=== PATIENT | male | born 1935 | race Caucasian/White ===

== ENCOUNTER 2023-03-08 16:09 | Emergency (ER) | payer OTHER ==
--- OUTSIDE RECORDS SUMMARY | 2023-03-08 16:11 | XMS REPORT | Continuity of Care Document ---
:1935 Author Organization [facility] t Address [address] [place] [id number] Care Team Providers Name Role Phone [email or web address]_Kohlleppel_ Attending Clinician Unavailable [email or web address]_Kohlleppel_ Admitting Clinician Unavailable Problems This patient has no known problems. Allergies, Adverse Reactions, Alerts This patient has no known allergies or adverse reactions. Medications This patient has no known medications. Procedures This patient has no known procedures. Encounters Start End Encounter Admission Attending Care Care Encounter Source Date/Time Date/Time Type Type Clinicians Facility Department ID 2022-07-31 2022-07-31 Outpatient [email or web address] PRIV PRIV [id number] [facility] 00:00:00 00:00:00 hlleppel_ [id number] [facility] Results This patient has no known results.
[2023-03-08 17:01] LABS: Absolute Lymphocytes (CBC) 2.1 K/uL (0.7-4.9); Hematocrit 40.9 % (39.6-49.0); Lymphocytes % 21.6 % (15.3-44.8); MCV 87.4 fL (80-100); MPV 7.5 fL (7.6-11.3); Platelets 277 thou/uL (152-406); RBC Red Blood Cell Count 4.68 M/uL (4.33-5.43)
[2023-03-08 17:16] LABS: Albumin 3.7 g/dL (3.4-5.0); Bilirubin Total 0.4 mg/dL (0.2-1.0); Magnesium 2.2 mg/dL (1.6-2.4); Protein, Total 7.2 g/dL (6.4-8.2)
[2023-03-08] MEDS ORDERED: NA CHLORIDE 0.9% 500 ML ONE (17:17)
--- NOTE | 2023-03-08 18:28 | RAD REPORT ---
EXAM DESCRIPTION: CTAbdomen Pelvis Wo Contrast - 03/08/2023 6:11 pm CLINICAL HISTORY: diarrhea COMPARISON: No comparisons TECHNIQUE: CT of the abdomen and pelvis was performed. All CT scans are performed using dose optimization technique as appropriate and may include automated exposure control or mA/KV adjustment according to patient size. FINDINGS: Lower chest: Circumferential thickened distal esophagus which may reflect esophagitis . En doscopy could better evaluate. Liver: No acute abnormality or suspicious lesions. Biliary: No biliary ductal dilatation. Cholelithiasis . Stomach: No significant focal abnormality. Duodenum: No significant focal abnormality. Pancreas: No significant abnormality. Spleen: No significant abnormality. Adrenal: No suspicious lesions. Kidney/ureter: No hydronephrosis. 4 mm stone in the right kidney . Too small to characterize and/or b enign appearing renal lesions are noted. Retroperitoneum: No retroperitoneal adenopathy. Vascular: No aneurysm. Atherosclerosis . Bowel: No significant focal abnormality. No appendicitis . Peritoneum: No ascites or free air. Bladder: Grossly unremarkable. Reproductive: No adnexal masses. Bones: No acute fracture. Other: n/a IMPRESSION: No acute intra-abdominal or pelvic finding.
--- NOTE | 2023-03-08 18:45 | ER ---
Nurse's Notes [facility] Name: Reji Jimenez Sr Age: 87 yrs Sex: Male : 1935 Arrival Date: 03/08/2023 Time: 16:09 Bed 2 Private MD: Diagnosis: Diarrhea, unspecified Presentation: 03/08 16:18 Chief complaint: EMS states: toned out for weakness and diarrhea, reports he has iw chronic diarrhea but i has gotten worse over past two days ad he's been more weak than usual. Coronavirus screen: Client presents with at least one sign or symptom that may indicate coronavirus-19. Ebola Screen: Patient negative for fever greater than or equal to 101.5 degrees Fahrenheit, and additional compatible Ebola Virus Disease symptoms Patient denies exposure to infectious person. Patient denies travel to an Ebola-affected area in the 21 days before illness onset. No symptoms or risks identified at this time. 16:18 Method Of Arrival: EMS: [facility] iw 16:18 Acuity: [facility] 3 iw 16:19 Initial Sepsis Screen: Does the patient meet any 2 criteria? No. Patient's initial iw sepsis screen is negative. Does the patient have a suspected source of infection? No. Patient's initial sepsis screen is negative. Risk Assessment: Do you want to hurt yourself or someone else? Patient reports no desire to harm self or others. Onset of symptoms was March 06, 2023. Screenin:38 [facility] ED Fall Risk Assessment (Adult) Score/Fall Risk Level 0 - 2 = Low Risk. Abuse iw screen: Denies threats or abuse. Denies injuries from another. Nutritional screening: No deficits noted. Tuberculosis screening: No symptoms or risk factors identified. Assessment: 16:38 General: Appears in no apparent distress. Behavior is calm, cooperative. Pain: Denies iw pain. Neuro: Level of Consciousness is awake, alert, obeys commands, Oriented to person, place, time, situation, Lens Examiner are equal bilaterally Moves all extremities. Respiratory: Respiratory effort is even, unlabored, Respiratory pattern is regular, symmetrical. GI: Reports diarrhea. 17:57 Reassessment: Patient appears in no apparent distress at this time. Patient and/or iw family updated on plan of care and expected duration. Pain level reassessed. Patient is alert, oriented x 3, equal unlabored respirations, skin warm/dry/pink. 19:05 Reassessment: Patient is alert, oriented x 3, equal unlabored respirations, skin aa5 warm/dry/pink. 19:05 Reassessment: Pt tolerated cup of water well, no nausea, no vomiting noted or reported. aa5 . Vital Signs: 16:19 BP 130 / 81; Pulse 72; Resp 18 S; Temp 98(O); Pulse Ox 96% on R/A; aa5 19:00 BP 137 / 98; Pulse 68; Resp 18 S; Temp 97.8(TE); Pulse Ox 98% on R/A; aa5 ED Course: 16:18 Patient arrived in ED. iw 16:18 Faraz Chawla PA is PHCP. cp 16:18 Alberto Mancera MD is Attending Physician. cp 16:19 Triage completed. iw 16:19 Arm band placed on. iw 16:27 Quynh Eduardo RN is Primary Nurse. iw 16:36 Initial lab(s) drawn, by az, sent to lab. Inserted saline lock: 20 gauge in left iw antecubital area, using aseptic technique. Blood collected. 18:11 CT Abd/Pelvis - Without Contrast In Process Unspecified. EDMS 19:04 Patient has correct armband on for positive identification. Provided Education on: . iw 19:05 No provider procedures requiring assistance completed. IV discontinued, intact, aa5 bleeding controlled, No redness/swelling at site. Pressure dressing applied. Administered Medications: 17:09 Drug: NS 0.9% IV 500 ml IV at 100 ml/hr continuous Route: IV; Rate: 100 ml/hr; Site: aa5 left antecubital; 19:00 Follow up: IV Status: Order to discontinue infusion iw Medication: 17:57 VIS not applicable for this client. iw Outcome: 18:44 Discharge ordered by . cp 19:05 Discharged to home via wheelchair, with significant other, aa5 19:05 Condition: stable 19:05 Discharge instructions given to patient, significant other, Instructed on discharge instructions, follow up and referral plans. Demonstrated understanding of instructions, follow-up care, 19:14 Patient left the ED. aa5 Signatures: Dispatcher [employer] EDNJ Quynh Eduardo RN RN iw Chinyere Giordano RN RN aa5 Page, Faraz, PA PA cp
--- NOTE | 2023-03-08 18:45 | EDPHYS ---
Physician Documentation [facility] Name: Reji Jimenez Sr Age: 87 yrs Sex: Male : 1935 Arrival Date: 03/08/2023 Time: 16:09 Bed 2 Private MD: ED Physician Alberto Mancera HPI: 03/08 16:30 This 87 yrs old Unknown Male presents to ER via EMS with complaints of General cp Weakness, Diarrhea. 16:30 The patient presents to the emergency department with diarrhea, 1 times today, cp abdominal pain. Onset: The symptoms/episode began/occurred 2 day(s) ago. Possible causes: bad food exposure. Associated signs and symptoms: Pertinent negatives: constipation, dysuria, fever, GI bleeding, vomiting. Severity of symptoms: in the emergency department the symptoms are unchanged despite home interventions. ROS: 16:35 Eyes: Negative for injury, pain, redness, and discharge, cp 16:35 Constitutional: Negative for fever, poor PO intake, 16:35 ENT: Negative for drainage from ear(s), ear pain, sore throat, difficulty swallowing, difficulty handling secretions, 16:35 Cardiovascular: Negative for chest pain, edema, 16:35 Respiratory: Negative for cough, shortness of breath, wheezing, 16:35 Abdomen/GI: Positive for abdominal pain, diarrhea, Negative for vomiting, constipation, black/tarry stool, rectal bleeding, 16:35 : Negative for urinary symptoms, 16:35 Neuro: Positive for weakness, Negative for altered mental status, dizziness, headache, 16:35 All other systems are negative, Exam: 16:40 Constitutional: The patient appears in no acute distress, alert, awake, cp non-diaphoretic, non-toxic, well developed, well nourished, 16:40 Head/Face: Normocephalic, atraumatic. cp 16:40 Eyes: Periorbital structures: appear normal, Conjunctiva: normal, no exudate, no injection, Sclera: no appreciated abnormality, Lids and lashes: appear normal, bilaterally, 16:40 ENT: External ear(s): are unremarkable, Nose: is normal, Mouth: Lips: moist, Oral mucosa: pink and intact, moist, Posterior pharynx: Airway: no evidence of obstruction, patent, 16:40 Chest/axilla: Inspection: normal, 16:40 Cardiovascular: Rate: normal, Rhythm: regular, Edema: is not appreciated, JVD: is not appreciated, 16:40 Respiratory: the patient does not display signs of respiratory distress, Respirations: normal, no use of accessory muscles, no retractions, labored breathing, is not present, Breath sounds: are clear throughout, no decreased breath sounds, no stridor, no wheezing, 16:40 Abdomen/GI: Inspection: abdomen appears normal, Bowel sounds: active, all quadrants, Palpation: soft, in all quadrants, mild abdominal tenderness, in all quadrants, rebound tenderness, is not appreciated, involuntary guarding, is not appreciated, 16:40 Back: pain, is absent, ROM is normal, 16:40 Skin: cellulitis, is not appreciated, no rash present. 16:40 Neuro: Orientation: to person, place \T\ time. Mentation: is normal, Motor: moves all fours, strength is normal, Sensation: is normal, Vital Signs: 16:19 BP 130 / 81; Pulse 72; Resp 18 S; Temp 98(O); Pulse Ox 96% on R/A; aa5 19:00 BP 137 / 98; Pulse 68; Resp 18 S; Temp 97.8(TE); Pulse Ox 98% on R/A; aa5 MDM: 16:25 Patient medically screened. cp 17:00 Differential diagnosis: gastritis, cholecystitis, pancreatitis, diverticulitis, viral cp gastroenteritis, gastroenteritis. 18:43 Data reviewed: vital signs, nurses notes, lab test result(s), radiologic studies, CT cp scan. ED course: VSS. Patient reports symptoms improved and requesting discharge to home. 03/08 16:21 Order name: CBC with Diff; Complete Time: 17:17 03/08 17:17 Interpretation: Normal except: MPV 7.5. 03/08 16:21 Order name: CMP; Complete Time: 17:17 03/08 17:18 Interpretation: Normal except: GLUC 171; BUN 36; CRE 1.49; GFR 45. 03/08 16:21 Order name: Lipase; Complete Time: 17:17 03/08 16:21 Order name: Influenza Screen (a \T\ B); Complete Time: 17:48 03/08 17:48 Interpretation: Reviewed. 03/08 16:21 Order name: Magnesium; Complete Time: 17:17 03/08 16:36 Order name: SARS-COV-2 RT PCR; Complete Time: 17:48 iw 03/08 17:48 Interpretation: Reviewed. cp 03/08 17:18 Order name: CT Abd/Pelvis - Without Contrast; Complete Time: 18:38 cp 03/08 16:21 Order name: IV Saline Lock; Complete Time: 16:48 cp 03/08 16:21 Order name: Labs collected and sent; Complete Time: 16:48 cp 03/08 18:40 Order name: PO challenge; Complete Time: 18:45 cp Administered Medications: 17:09 Drug: NS 0.9% IV 500 ml IV at 100 ml/hr continuous Route: IV; Rate: 100 ml/hr; Site: aa5 left antecubital; 19:00 Follow up: IV Status: Order to discontinue infusion iw Disposition: 21:16 Co-signature as Attending Physician, Alberto Mancera MD I reviewed the patient's care rt provided by the Advanced Practice Provider and agree with the diagnosis and treatment plan. Disposition Summary: 03/08/23 18:44 Discharge Ordered Notes: Location: Home cp Problem: new cp Symptoms: have improved cp Condition: Stable cp Diagnosis - Diarrhea, unspecified cp Followup: cp - With: Private Physician - When: 2 - 3 days - Reason: Recheck today's complaints Discharge Instructions: - Discharge Summary Sheet cp - Food Choices to Help Relieve Diarrhea, Adult cp - Dehydration, Elderly cp - Diarrhea, Adult cp Forms: - Medication Reconciliation Form cp - Thank You Letter cp - Antibiotic Education cp - Prescription Opioid Use cp - Patient Portal Instructions cp - Leadership Thank You Letter cp Signatures: Dispatcher [employer] [facility] Chinyere Giordano RN RN aa5 Faraz Chawla PA PA cp Alberto Mancera MD MD rt Quynh Eduardo RN iw Corrections: (The following items were deleted from the chart) 03/09 03:53 03:51 The patient presents to the emergency department with diarrhea, 1 times today, cp abdominal pain, cp 03:53 03:51 Onset: The symptoms/episode began/occurred 2 day(s) ago, cp cp 03:53 03:51 Possible causes: bad food exposure, cp cp 03:53 03:51 Associated signs and symptoms: Pertinent negatives: constipation, dysuria, fever, cp GI bleeding, vomiting, cp 03:53 03:51 Severity of symptoms: in the emergency department the symptoms are unchanged cp despite home interventions, cp
[2023-03-08 19:28] VITALS: BP 130/81; TEMP 98; O2SAT 96
== END 2023-03-08 19:14 | disposition home or self-care (01) ==
LOC: ER 16:09
DX: R19.7 Diarrhea, unspecified (principal); R53.1 Weakness; Z11.52 Encounter for screening for COVID-19
CPT/HCPCS: 96361; 85025; 36415; 83735; 83690; 80053; 87635; 87804 ×2; 74176; 96360; 99284; J7040

== ENCOUNTER 2023-04-19 10:00 | Inpatient (IN) | payer OTHER ==
--- OUTSIDE RECORDS SUMMARY | 2023-04-19 10:15 | XMS REPORT | Continuity of Care Document ---
Author Name Unknown Address [address] [facility] [address] th[address] Address [address] [place] [address] 1 [address] [place] [address] Care Team Providers Care Train Inspector Name Role Phone [email or web address]_Kohlleppel_ Attending Clinician Unavail able [email or web address]_Kohlleppel_ Admitting Clinician Unavail able Encounters Start Date/Time End Date/Time Encounter Type Admission Type Attending Clinicians Care Facility Care Department Encounter ID Source 2022-07-31 00:00:00 2022-07-31 00:00:00 Outpatient [email or web address]_Ko hlleppel_ PRIV [facility] [id number] [facility]
[2023-04-19] MEDS ORDERED: D50W 25 GM/50 ML SYRINGE IV PRN (11:50)
[2023-04-19] MEDS ORDERED: GLUCAGON 1 MG/VIAL IM PRN (11:50)
[2023-04-19] MEDS ORDERED: D10W 125 ML IV PRN (12:00)
[2023-04-19] MEDS ORDERED: CETIRIZINE HCL 5 MG TABLET PO PRN (12:13)
[2023-04-19] MEDS ORDERED: DOCUSATE NA/SENNA CONC 1 TAB PO PRN (13:31)
[2023-04-19] MEDS ORDERED: NA CHLORIDE 0.9% 1,000 ML IV SCH (14:00)
[2023-04-19] MEDS ORDERED: GABAPENTIN 300 MG CAP PO SCH (14:00)
[2023-04-19] MEDS: GABAPENTIN 100 MG CAP PO SCH ×2 (14:38→20:06)
[2023-04-19] MEDS: INSULIN REGULAR (HUMAN) 100 UNIT/ML SQ SCH ×2 (16:30→20:18)
--- NOTE | 2023-04-19 16:48 | RAD REPORT ---
EXAM DESCRIPTION: RAD - Chest Single View - 04/19/2023 4:39 pm CLINICAL HISTORY: cought Chest pain. COMPARISON: No comparisons FINDINGS: Portable technique limits examination quality. The lungs are grossly clear. The heart is normal in size. No displaced fractures. IMPRESSION: No acute intrathoracic process suspected.
[2023-04-19] MEDS: GLIMEPIRIDE 2 MG TABLET PO SCH (17:44)
[2023-04-19] MEDS: carvediloL 6.25 MG TAB PO SCH (17:44)
[2023-04-19] MEDS: PARoxetine HCL 10 MG TAB PO SCH (20:05)
[2023-04-19] MEDS: APIXABAN 2.5 MG TABLET PO SCH (20:05)
[2023-04-19] MEDS: SACUBITRIL/VALSARTAN 24/26 MG TAB PO SCH (20:05)
[2023-04-19] MEDS: FAMOTIDINE 20 MG TAB PO SCH (20:05)
[2023-04-19] MEDS: MAGNESIUM OXIDE 400 MG TAB PO SCH (20:06)
[2023-04-19] MEDS: GLUCERNA SHAKE 237 ML CAN PO SCH (20:06)
[2023-04-19] MEDS: CIPROFLOXACIN 500 MG PO SCH (20:18)
--- NOTE | 2023-04-19 21:35 | HP ---
Date of Admission: 04/19/2023 Time Of Service: 1:45 p.m. Chief Complaint: "I'm very weak and I can't stand up." History Of Present Illness: Mr. Jimenez is an 87-year-old patient with multiple medical problems inc luding congestive heart failure, diabetes mellitus type 2, coronary artery disease, arthritis, cancer , hypertension, who has been declining over multiple years. He has had multiple falls including fall s where he impacted his head, but has not had any skull fractures or internal bleeding. He was actua lly falling multiple times a day. He tried to ambulate with a Rollator, but it was unable to help hi m. He began home health with physical therapy, but despite that, he was unable to thrive and became essentially bed-bound. The patient did admit that his lower back pain with radiculopathy made it dif ficult for him to stand and bear weight and as a consequence, has been mostly bed bound. He has also been incontinent of urine and stool and has had multiple antibiotics. Furthermore, the patient had edema in the bilateral lower extremities and was put on Lasix 40 mg daily. He has had significant or thostatic type symptoms when he is going from a lying to sitting and standing position resulting in h im getting "dizzy" and being unable to stand due to the feeling of diffuse weakness and inability to mobilize. As a result, he is beginning to have breakdown in his buttocks region and dependent areas and would require significant help for him to be able to stand and ambulate and began to recover his ability to improve his mobilization transfers and offload areas that will prevent decubital ulcers. As a result, he is admitted to the inpatient rehabilitation unit for aggressive physical and occupati onal therapy along with management of his comorbid conditions. Past Medical History: As noted above included also his back surgery after a back injury 4 years ago. He has hypothyroidism and prostate disease. Allergies: NO KNOWN DRUG ALLERGIES. Medications: Tylenol 500 mg every 6 hours as needed, Eliquis 2.5 mg twice daily for DVT prophylaxis, atorvastatin 20 mg at bedtime, Coreg 6.25 mg twice daily. He is on Zyrtec 10 mg daily for his aller gies. He has ciprofloxacin 500 mg twice daily for urinary tract infection and cystic fibrosis. Also on Senokot-S 2 at bedtime, Pepcid 20 mg twice daily, gabapentin 100 mg 3 times daily for diabetes, A maryl 4 mg twice daily, Glucerna 237 mL twice daily, levothyroxine 0.025 mg daily, Atacand patch appl y topically daily to the back as needed, magnesium oxide 400 mg twice daily, melatonin 3 at bedtime. The patient on arrival to the unit had significant orthostatic changes. His standing blood pressure was 188 over around 53, pulse of 102. He was given 500 cc bolus of normal saline and continue the o ther 575 cc an hour. In addition, received Paxil 30 mg at bedtime. He is on the Prevagen daily for cognitive impairment and spironolactone 25 mg daily along with sacubitril/valsartan 1 tablet twice da basia. Family History: Noncontributory. Social History: The patient was living at home, but as noted was not thriving. No alcohol, tobacco, or IV drug use. Review of Systems: As noted, marked dizziness and orthostatic worsening symptoms preventing him from doing any meaningfu l mobilization such as standing and ambulation. Also able to control bowel and bladder loss and some diffuse muscle spasms in the lower extremity, especially when trying to sit up. Denies any vomiting or nausea. On review of systems again, no fevers, chills, nausea, vomiting. Laboratory Studies: His glucose ranged from 150 to 184 on March 28 and today at 737. White bloo d cell count had increased to 18 and the previous one on March 08 was 9.7. Neutrophils were 68 on the and absolute neutrophils elevated at 12.5. He has been treated with antibiotics. His sodiu m on the was 138, potassium 4.2, chloride 107, carbon dioxide 28, his creatinine was elevated at 1.42, consistent with dehydration. Hemoglobin A1c elevated at 7.3, calcium 9.6, AST 11, ALT 30, lillie line phosphatase 119. His vitamin D level 41.1, vitamin B12 level 278. Current Level Of Functioning: Currently, supervision for eating, oral hygiene; dependent for toilet hygiene; dependent for bathing; maximal assistance for upper body dressing and lower body dressing co mpletely independent; donning and doffing shoes, dependent; rolling left to right and right to left s upervision, moderate assistance for [id number] transfers to the toilet. Also dependent for toileti ng and ambulation. He covered just 1 foot, was totally dependent, and attempted one stair is totally dependent. Rehab And Medical Assessment And Plan: Mr. Jimenez is admitted to the inpatient rehabilitation unit with impairment category 06, neurological condition. His impairment group code is 03.9 other neurolo gical condition. 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 Additional comorbidities are arth ritis, coronary artery disease, cardiomyopathy, congestive heart failure, decreased mobility, decreas ed physical functioning, diabetes mellitus, hypertension, hypotension, and orthostatic hypotension, r ecurrent falls, urinary tract infection, urinary and stool incontinence. Plan: 1.He will have physical and occupational therapy along with speech therapy for 3.5 hours, 5 of 7 day s. 2.We will continue with fluids as he has been over diuresed to help with his orthostatic changes. W e will monitor daily weights and calf circumference and look for any pitting edema. He will also hav e a chest x-ray done to rule out any congestion in the chest. Chest x-ray was done earlier today and study revealed lungs are grossly clear, heart of normal size. No displaced fractures. No acute int rathoracic process was identified. In addition, we will continue with hold parameters on his Coreg a nd spironolactone. Continue Paxil for depression. Continue Lipitor for dyslipidemia, Eliquis 2.5 mg twice daily for DVT prophylaxis, Glucerna for malnutrition, Amaryl 4 mg daily for diabetes mellitus, Synthroid for hypothyroidism, melatonin for insomnia, Senokot-S for constipation. Impact Of Comorbidities: Given his significant orthostatic changes, he is at high risk of falling, f all precautions adhered to at all times. He will have a gait belt and the rolling walker. The patie nt may benefit from abdominal binders and JEANNE hose as he mobilizes. Also, there is incontinence of s tool and urine. May attempt bladder training and timed stool in relationship to meals to help him pl an the ability to manage his urine and stool output. He will work hard to be able to return home, bu t if he is unable to thrive, he may require correction. Rehab Specific Plan: 1.Mr. Jimenez will have physical, occupational, and speech therapy for 3.5 hours, 5 of 7 days to imp rove his ability to transfer from bed to chair to toilet to shower. To be able to ambulate at least household distance of 50 feet and go up and down 2 steps. 2.To be able to perform cognitive functioning independently. 3.To be able to assess his weight daily and to determine if he is retaining fluid to adjust diuretic s and to check daily blood pressures. He will also have correction to help with that. Also uri nalysis will be done. Chest x-ray has already ruled out pneumonia and his renal function again sugge sts dehydration. Fluids will be given and those will be managed. 4.Mr. Jimenez has a good understanding of the process of admission to inpatient rehabilitation facil ities and understands the benefit of physical, occupational, and speech therapy. If need be, additio nal service from the Cardiology Service, the Hospitalist Service will be consulted. He will have 24 hours a day correction along with daily physician evaluation, management, and of course physical , occupational, and speech therapy and social services technician management for discharge planning and equipmen t. Barriers To Discharge: Currently, he has significant orthostatic changes and may make it difficult f or him to thrive, but that is likely related to significant hypotension from dehydration and over diu resis. Those are being addressed and he should improve from that. Length of stay about 12 days. Disposition: Home with continued therapy via Home Health. Prognosis: Good. Rehabilitation Goals: 1.To become independent with upper and lower body dressing, transferring, toileting, showering. 2.Independent with ambulation of 250 feet with a rolling walker. 3.Independently propel a wheelchair 250 feet. 4.Independently go up and down 10 steps with bilateral handrails. 5.Independently perform cognitive function, management of all medications, and his daily weights and blood pressure. Blood pressure is followed with appropriate use of diuretics. 6.The above goals were reviewed with Mr. Jimenez and he is in agreement. By signing this document, I acknowledge I personally performed a full physical examination on Mr. Layton arita no later than 24 hours after his admission to the inpatient rehabilitation facility and determin ed that he is able to tolerate the above course of treatment at an intensive level for a reasonable p eriod of time. A detailed individualized plan of care for him will be completed by hospital day 4 based on the preadmission screen, history and phy sical, and therapy evaluations. KEENAN/SHAHEEN Voice ID: [id number]
[2023-04-20] MEDS: LEVOTHYROXINE SOD 0.025 MG TAB PO SCH (05:34)
[2023-04-20] MEDS: INSULIN REGULAR (HUMAN) 100 UNIT/ML SQ SCH ×4 (06:51→19:53)
[2023-04-20] MEDS: SPIRONOLACTONE 25 MG TABLET PO SCH ×2 (08:00→09:25)
[2023-04-20] MEDS: LIDOCAINE 4% PATCH TOP SCH ×2 (08:00→09:28)
[2023-04-20] MEDS: carvediloL 6.25 MG TAB PO SCH ×3 (08:00→17:03)
[2023-04-20] MEDS ORDERED: FUROSEMIDE 40 MG/4 ML VIAL IV SCH (08:00)
[2023-04-20] MEDS: CRANBERRY FRUIT EXTRACT 200 MG CAP PO SCH ×2 (08:38→19:19)
[2023-04-20] MEDS: FAMOTIDINE 20 MG TAB PO SCH ×2 (08:41→19:19)
[2023-04-20] MEDS: GLIMEPIRIDE 2 MG TABLET PO SCH ×2 (08:41→17:04)
[2023-04-20] MEDS: MAGNESIUM OXIDE 400 MG TAB PO SCH ×2 (08:41→19:18)
[2023-04-20] MEDS: SACUBITRIL/VALSARTAN 24/26 MG TAB PO SCH ×2 (08:42→19:19)
[2023-04-20] MEDS: PREVAGEN PO SCH (08:42)
[2023-04-20] MEDS: ATORVASTATIN 20 MG TAB PO SCH (08:42)
[2023-04-20] MEDS: APIXABAN 2.5 MG TABLET PO SCH ×2 (08:42→19:20)
[2023-04-20] MEDS: CIPROFLOXACIN 500 MG PO SCH ×2 (08:43→19:19)
[2023-04-20 08:58] LABS: Hematocrit 36.1 % (39.6-49.0); Lymphocytes % 31.3 % (15.3-44.8); MCV 87.5 fL (80-100); MPV 7.3 fL (7.6-11.3); Platelets 328 thou/uL (152-406); RBC Red Blood Cell Count 4.13 M/uL (4.33-5.43)
[2023-04-20] MEDS: GABAPENTIN 100 MG CAP PO SCH ×3 (09:00→19:20)
[2023-04-20] MEDS: GLUCERNA SHAKE 237 ML CAN PO SCH ×2 (09:26→19:20)
[2023-04-20 10:27] LABS: Albumin 3.2 g/dL (3.4-5.0); Magnesium 2.3 mg/dL (1.6-2.4); Potassium 3.8 mEq/L (3.5-5.1)
[2023-04-20] MEDS: MULTIVITAMIN TAB PO SCH (17:03)
[2023-04-20] MEDS: CYANOCOBALAMIN 1,000 MCG TAB PO SCH (17:03)
[2023-04-20] MEDS: PARoxetine HCL 10 MG TAB PO SCH (19:18)
[2023-04-20] MEDS: MELATONIN 3 MG TABLET PO PRN (19:19)
[2023-04-21] MEDS: LEVOTHYROXINE SOD 0.025 MG TAB PO SCH (05:50)
[2023-04-21] MEDS: INSULIN REGULAR (HUMAN) 100 UNIT/ML SQ SCH ×4 (06:39→20:03)
[2023-04-21] MEDS: FAMOTIDINE 20 MG TAB PO SCH ×2 (07:11→20:02)
[2023-04-21] MEDS: MULTIVITAMIN TAB PO SCH (07:11)
[2023-04-21] MEDS: CYANOCOBALAMIN 1,000 MCG TAB PO SCH (07:11)
[2023-04-21] MEDS: CRANBERRY FRUIT EXTRACT 200 MG CAP PO SCH ×2 (07:11→20:02)
[2023-04-21] MEDS: GLIMEPIRIDE 2 MG TABLET PO SCH ×2 (07:11→16:23)
[2023-04-21] MEDS: APIXABAN 2.5 MG TABLET PO SCH ×2 (07:11→20:02)
[2023-04-21] MEDS: carvediloL 6.25 MG TAB PO SCH (07:12)
[2023-04-21] MEDS: ATORVASTATIN 20 MG TAB PO SCH (07:12)
[2023-04-21] MEDS: LIDOCAINE 4% PATCH TOP SCH (07:26)
[2023-04-21] MEDS: PREVAGEN PO SCH (08:51)
[2023-04-21] MEDS: CIPROFLOXACIN 500 MG PO SCH (08:51)
[2023-04-21] MEDS: MAGNESIUM OXIDE 400 MG TAB PO SCH ×2 (09:18→20:02)
[2023-04-21] MEDS: GABAPENTIN 100 MG CAP PO SCH ×3 (09:18→20:03)
[2023-04-21] MEDS: GLUCERNA SHAKE 237 ML CAN PO SCH ×2 (09:19→20:02)
[2023-04-21] MEDS: SPIRONOLACTONE 25 MG TABLET PO SCH (10:13)
[2023-04-21] MEDS: SACUBITRIL/VALSARTAN 24/26 MG TAB PO SCH ×2 (10:13→20:02)
--- NOTE | 2023-04-21 13:28 | P.RH.PN ---
Estimated Length of Stay: 16 Expected Discharge Date: 05/02/23 Discharge Disposition Plan: Home Family Support: Yes Detention Goal: Mobility, Transfers, Self Care Vital Signs: Last Vital Signs Temp 97.1 F 04/21/23 08:00 Pulse 56 04/21/23 10:13 Resp 20 04/21/23 08:00 BP 131/62 04/21/23 10:13 Pulse Ox 99 04/21/23 08:00 Laboratory: Laboratory Last Values WBC 12.70 thou/uL (4.3-10.9) H 04/20/23 08:31 RBC 4.13 M/uL (4.33-5.43) L 04/20/23 08:31 Hgb 12.6 g/dL (13.6-17.9) L 04/20/23 08:31 Hct 36.1 % (39.6-49.0) L 04/20/23 08:31 MCV 87.5 fL (80-100) 04/20/23 08:31 MCH 30.4 pg (27.0-35.0) 04/20/23 08:31 MCHC 34.8 g/dL (32.0-36.0) 04/20/23 08:31 RDW 13.7 % (12.1-15.2) 04/20/23 08:31 Plt Count 328 thou/uL (152-406) 04/20/23 08:31 MPV 7.3 fL (7.6-11.3) L 04/20/23 08:31 Neutrophils % 55.7 % (41.7-73.7) 04/20/23 08:31 Lymphocytes % 31.3 % (15.3-44.8) 04/20/23 08:31 Monocytes % 8.9 % (3.3-12.3) 04/20/23 08:31 Eosinophils % 3.8 % (0-4.4) 04/20/23 08:31 Basophils % 0.3 % (0-1.3) 04/20/23 08:31 Absolute Neutrophils 7.1 K/uL (1.8-8.0) 04/20/23 08:31 Absolute Lymphocytes 4.0 K/uL (0.7-4.9) 04/20/23 08:31 Absolute Monocytes 1.1 K/uL (0.1-1.3) 04/20/23 08:31 Absolute Eosinophils 0.5 K/uL (0-0.5) 04/20/23 08:31 Absolute Basophils 0.0 K/uL (0-0.5) 04/20/23 08:31 Sodium 134 mEq/L (136-145) L 04/20/23 08:31 Potassium 3.8 mEq/L (3.5-5.1) 04/20/23 08:31 Chloride 102 mEq/L (98-107) 04/20/23 08:31 Carbon Dioxide 28 mEq/L (21-32) 04/20/23 08:31 Anion Gap 7.8 mEq/L (5.0-15.0) 04/20/23 08:31 BUN 40 mg/dL (7-18) H 04/20/23 08:31 Creatinine 1.76 mg/dL (0.70-1.30) H 04/20/23 08:31 Est GFR (CKD-EPI) 37 ml/min (=/>90) L 04/20/23 08:31 Glucose 154 mg/dL (74-106) H 04/20/23 08:31 POC Glucose 172 mg/dL (65-120) H 04/21/23 11:52 Calcium 9.0 mg/dL (8.5-10.1) 04/20/23 08:31 Magnesium 2.3 mg/dL (1.6-2.4) 04/20/23 08:31 NT-Pro-B Natriuret Pep 63 pg/mL (<450) 04/20/23 08:31 Albumin 3.2 g/dL (3.4-5.0) L 04/20/23 08:31 Prealbumin 30.0 mg/dL (20-40) 04/20/23 08:31 SARS-CoV-2 Rap RNA(RT-PCR) Negative (NEGATIVE) 04/19/23 12:34 Weight: 214 lb Wound Present: No Physician Update: Labs reviewed and are stable. On DVT prophylaxis. Pain is managed. Stage I dependent area on the buttocks. Very poor short term memory. SLUMS 12. Mod assistance for sit to stand. No walking, no pivot transfers, wheelchair 150' with mod assistance. He did better with occupational therapy. He has episodes of inhibition. Summary: Patient's care plan and senior living goals have been reviewed and revised as necessary. Please see the Rehabilitation Signature page for all necessary signatures.
[2023-04-21] MEDS: carvediloL 3.125 MG TAB PO SCH (17:00)
[2023-04-21] MEDS: PARoxetine HCL 10 MG TAB PO SCH (20:03)
[2023-04-21] MEDS: MELATONIN 3 MG TABLET PO PRN (20:05)
[2023-04-22] MEDS: carvediloL 3.125 MG TAB PO SCH ×2 (07:24→17:48)
[2023-04-22] MEDS: APIXABAN 2.5 MG TABLET PO SCH ×2 (07:24→20:58)
[2023-04-22] MEDS: MIDODRINE HCL 5 MG TABLET PO SCH (07:24)
[2023-04-22] MEDS: FAMOTIDINE 20 MG TAB PO SCH ×2 (07:24→20:58)
[2023-04-22] MEDS: SACUBITRIL/VALSARTAN 24/26 MG TAB PO SCH ×2 (07:25→20:57)
[2023-04-22] MEDS: LEVOTHYROXINE SOD 0.025 MG TAB PO SCH (07:27)
[2023-04-22] MEDS: INSULIN REGULAR (HUMAN) 100 UNIT/ML SQ SCH ×4 (07:30→21:00)
[2023-04-22 07:43] LABS: Lymphocytes % 30.4 % (15.3-44.8); MCV 86.9 fL (80-100); MPV 7.6 fL (7.6-11.3); Platelets 304 thou/uL (152-406); RBC Red Blood Cell Count 3.68 M/uL (4.33-5.43)
[2023-04-22] MEDS: PREVAGEN PO SCH (08:48)
[2023-04-22] MEDS: LIDOCAINE 4% PATCH TOP SCH (08:49)
[2023-04-22] MEDS: GLUCERNA SHAKE 237 ML CAN PO SCH ×2 (08:49→20:00)
[2023-04-22] MEDS: CRANBERRY FRUIT EXTRACT 200 MG CAP PO SCH ×2 (08:49→20:58)
[2023-04-22] MEDS: GLIMEPIRIDE 2 MG TABLET PO SCH ×2 (08:50→17:47)
[2023-04-22] MEDS: CYANOCOBALAMIN 1,000 MCG TAB PO SCH (08:50)
[2023-04-22] MEDS: MAGNESIUM OXIDE 400 MG TAB PO SCH ×2 (08:50→20:59)
[2023-04-22] MEDS: MULTIVITAMIN TAB PO SCH (08:50)
[2023-04-22] MEDS: ATORVASTATIN 20 MG TAB PO SCH (08:50)
[2023-04-22] MEDS: SPIRONOLACTONE 25 MG TABLET PO SCH (08:51)
[2023-04-22] MEDS: GABAPENTIN 100 MG CAP PO SCH ×3 (08:51→20:58)
[2023-04-22] MEDS: PARoxetine HCL 10 MG TAB PO SCH (20:58)
[2023-04-22] MEDS: MELATONIN 3 MG TABLET PO PRN (20:59)
[2023-04-23] MEDS: LEVOTHYROXINE SOD 0.025 MG TAB PO SCH (05:22)
[2023-04-23] MEDS: INSULIN REGULAR (HUMAN) 100 UNIT/ML SQ SCH ×4 (07:30→19:58)
[2023-04-23] MEDS: GLUCERNA SHAKE 237 ML CAN PO SCH ×2 (08:00→19:59)
[2023-04-23] MEDS: SPIRONOLACTONE 25 MG TABLET PO SCH (08:33)
[2023-04-23] MEDS: MIDODRINE HCL 5 MG TABLET PO SCH (08:33)
[2023-04-23] MEDS: GLIMEPIRIDE 2 MG TABLET PO SCH ×2 (08:34→17:20)
[2023-04-23] MEDS: CRANBERRY FRUIT EXTRACT 200 MG CAP PO SCH ×2 (08:35→19:50)
[2023-04-23] MEDS: carvediloL 3.125 MG TAB PO SCH ×2 (08:35→17:20)
[2023-04-23] MEDS: APIXABAN 2.5 MG TABLET PO SCH ×2 (08:35→19:50)
[2023-04-23] MEDS: SACUBITRIL/VALSARTAN 24/26 MG TAB PO SCH ×2 (08:35→19:50)
[2023-04-23] MEDS: MULTIVITAMIN TAB PO SCH (08:35)
[2023-04-23] MEDS: FAMOTIDINE 20 MG TAB PO SCH ×2 (08:36→19:50)
[2023-04-23] MEDS: ATORVASTATIN 20 MG TAB PO SCH (08:36)
[2023-04-23] MEDS: CYANOCOBALAMIN 1,000 MCG TAB PO SCH (08:37)
[2023-04-23] MEDS: MAGNESIUM OXIDE 400 MG TAB PO SCH ×2 (08:37→19:51)
[2023-04-23] MEDS: GABAPENTIN 100 MG CAP PO SCH ×3 (08:37→19:50)
[2023-04-23] MEDS: PREVAGEN PO SCH (08:38)
[2023-04-23] MEDS: LIDOCAINE 4% PATCH TOP SCH (08:40)
--- NOTE | 2023-04-23 18:12 | PN ---
Date of Progress Note: 04/23/2023 Time Of Service: 2:10 p.m. Subjective: Mr. Jimenez is in his room getting ready to go to the bathroom. His is at bedside and our nurse is actually helping him. He has no new complaints. He is very happy. He says that [facility] staff are doing a wonderful job and he has no new complaints about his progress made in the rehabil itation unit. Objective: He has no fevers, chills, nausea, vomiting. No myalgias, arthralgias, rash, headache, we ight change. No psychiatric complaints. Physical Examination: Vital Signs: Blood pressure 118/58, pulse 60. He had orthostatics done, while lying 118/58, pulse o f 60, while standing 117/65, pulse 69. He was not symptomatic. Respiratory rate 16, oxygen saturati on 93%. General: Mr. Jimenez cans in a chair beside bed. HEENT: He is normocephalic, atraumatic. Sclerae anicteric. Oropharynx moist. Neck: Supple. Chest: Clear. Heart: Regular. Neuro: He has some pain in the lumbar region radiating out, but that is controlled with patch, neuro modulator, and multiple pain medication modalities. Laboratory Studies: White blood cell count 9.9, hemoglobin 11.1, platelets 304. Sodium 135, potassi um 4.0, chloride 104, carbon dioxide 27, BUN 44, creatinine 1.62, glucose ranged from 93 to 176, calc ium 8.7. X-ray/imaging: No new x-rays or imaging. Medications: Medications have been reviewed and remained unchanged except he is taking midodrine 5 m g daily for pressure support and has had abdominal binders and JEANNE hose in place. Progress Made With Physical And Occupational Therapy: He was able to xyx-gh-yezfed transfer with sta ndby assistance and verbal cues, dpg-hz-[id number] transfers, verbal cues, and minimum assistance, stand p ivot transfer, minimum assistance. He did ambulate 8 feet 5 times with contact guard assistance in t he parallel bars. Mobilized wheelchair 150 feet independently. Mr. Jimenez is making fair overall progress with physical and occupational therapy. He is also worki ng with speech therapy and has long-term goals of improving memory, executive functioning from a mode rate assistance level to minimum assistance level and to help from facilitate returning home with devon britt of his . Assessment: Mr. Jimenez is an 87-year-old patient in the rehabilitation unit with lumbar radiculopat hy from lower back pain. He has arthritis, coronary artery disease, cardiomyopathy, congestive heart failure, decreased mobility, decrease in physical functioning, hypertension, hypothyroidism, orthost atic hypotension and recurrent falls with urine tract infection, urine and stool incontinence. Plan: 1.Continue with physical, occupational, and speech therapy for 3.5 hours, 5 out of 7 days. 2.He has multiple comorbid conditions, which are managed by continuing Eliquis for DVT prophylaxis, Lipitor for dyslipidemia, acetaminophen or Tylenol 500 mg every 6 hours for pain management, Coreg 3. 125 mg twice a day for hypertension, Zyrtec for his allergies, vitamin B12 for energy level improveme nt, Glucerna 237 mL twice daily for malnutrition, Pepcid for GE reflux, gabapentin 100 mg 3 times maria c ly, Amaryl 4 mg twice daily for diabetes mellitus, Synthroid 0.025 mg daily for hypothyroidism, magne sium oxide 400 mg twice daily for muscle spasms, midodrine 5 mg daily to support blood pressure, Paxi l 30 mg at bedtime, Senokot-S 2 at bedtime, and Aldactone 25 mg daily. Comorbidities That Continue To Impact Rehabilitation: He does have the orthostatic hypotension, but with mitigating treatment of the midodrine, JEANNE hose, and abdominal binders, he is so far doing much better. LB/MODL Voice ID: [id number] Report ID: [id number]
[2023-04-23] MEDS: PARoxetine HCL 10 MG TAB PO SCH (19:50)
[2023-04-23] MEDS: MELATONIN 3 MG TABLET PO PRN (19:51)
[2023-04-24] MEDS: LEVOTHYROXINE SOD 0.025 MG TAB PO SCH (05:31)
[2023-04-24] MEDS: INSULIN REGULAR (HUMAN) 100 UNIT/ML SQ SCH ×4 (06:49→19:58)
[2023-04-24] MEDS: APIXABAN 2.5 MG TABLET PO SCH ×2 (07:09→19:57)
[2023-04-24] MEDS: MIDODRINE HCL 5 MG TABLET PO SCH (07:09)
[2023-04-24] MEDS: SACUBITRIL/VALSARTAN 24/26 MG TAB PO SCH ×2 (07:12→19:57)
[2023-04-24] MEDS: LIDOCAINE 4% PATCH TOP SCH ×2 (08:00→13:13)
[2023-04-24] MEDS: GABAPENTIN 100 MG CAP PO SCH ×3 (09:01→19:57)
[2023-04-24] MEDS: FAMOTIDINE 20 MG TAB PO SCH ×2 (09:01→19:57)
[2023-04-24] MEDS: CRANBERRY FRUIT EXTRACT 200 MG CAP PO SCH ×2 (09:01→19:57)
[2023-04-24] MEDS: CYANOCOBALAMIN 1,000 MCG TAB PO SCH (09:01)
[2023-04-24] MEDS: MULTIVITAMIN TAB PO SCH (09:01)
[2023-04-24] MEDS: GLIMEPIRIDE 2 MG TABLET PO SCH ×2 (09:01→17:03)
[2023-04-24] MEDS: carvediloL 3.125 MG TAB PO SCH ×2 (09:02→17:03)
[2023-04-24] MEDS: ATORVASTATIN 20 MG TAB PO SCH (09:03)
[2023-04-24] MEDS: SPIRONOLACTONE 25 MG TABLET PO SCH (09:03)
[2023-04-24] MEDS: GLUCERNA SHAKE 237 ML CAN PO SCH ×2 (10:51→19:58)
[2023-04-24] MEDS: MAGNESIUM OXIDE 400 MG TAB PO SCH ×2 (11:06→19:58)
[2023-04-24] MEDS: PREVAGEN PO SCH (11:30)
[2023-04-24] MEDS: ACETAMINOPHEN 500 MG TAB PO PRN (13:00)
[2023-04-24] MEDS: MELATONIN 5 MG TABLET PO PRN (19:57)
[2023-04-24] MEDS: PARoxetine HCL 10 MG TAB PO SCH (19:57)
[2023-04-25 03:25] LABS: Potassium 4.3 mEq/L (3.5-5.1)
[2023-04-25] MEDS: LEVOTHYROXINE SOD 0.025 MG TAB PO SCH (05:20)
[2023-04-25] MEDS: INSULIN REGULAR (HUMAN) 100 UNIT/ML SQ SCH ×4 (07:30→20:41)
[2023-04-25] MEDS: MIDODRINE HCL 5 MG TABLET PO SCH (07:57)
[2023-04-25] MEDS: MULTIVITAMIN TAB PO SCH (07:58)
[2023-04-25] MEDS: SPIRONOLACTONE 25 MG TABLET PO SCH (07:58)
[2023-04-25] MEDS: MAGNESIUM OXIDE 400 MG TAB PO SCH ×2 (07:58→20:40)
[2023-04-25] MEDS: carvediloL 3.125 MG TAB PO SCH ×2 (07:59→16:25)
[2023-04-25] MEDS: APIXABAN 2.5 MG TABLET PO SCH ×2 (07:59→20:40)
[2023-04-25] MEDS: GABAPENTIN 100 MG CAP PO SCH (07:59)
[2023-04-25] MEDS: GLIMEPIRIDE 2 MG TABLET PO SCH ×2 (07:59→16:28)
[2023-04-25] MEDS: CRANBERRY FRUIT EXTRACT 200 MG CAP PO SCH ×2 (07:59→20:40)
[2023-04-25] MEDS: CYANOCOBALAMIN 1,000 MCG TAB PO SCH (07:59)
[2023-04-25] MEDS: ATORVASTATIN 20 MG TAB PO SCH (07:59)
[2023-04-25] MEDS: FAMOTIDINE 20 MG TAB PO SCH ×2 (08:00→20:41)
[2023-04-25] MEDS: LIDOCAINE 4% PATCH TOP SCH (08:00)
[2023-04-25] MEDS: GLUCERNA SHAKE 237 ML CAN PO SCH ×2 (08:00→20:41)
[2023-04-25] MEDS: SACUBITRIL/VALSARTAN 24/26 MG TAB PO SCH ×2 (08:00→20:40)
[2023-04-25] MEDS: PREVAGEN PO SCH (08:01)
[2023-04-25] MEDS: ACETAMINOPHEN 500 MG TAB PO PRN (12:06)
[2023-04-25] MEDS: MELATONIN 5 MG TABLET PO PRN (20:39)
[2023-04-25] MEDS: PARoxetine HCL 10 MG TAB PO SCH (20:40)
[2023-04-25] MEDS: GABAPENTIN 300 MG CAP PO SCH (20:40)
--- NOTE | 2023-04-25 21:23 | PN ---
Date of Progress Note: 04/25/2023 Time Of Service: 1:10 p.m. Subjective: Mr. Jimenez is in his room. is at the bedside. He did say he was somewhat upset w ith the therapist today as they made him do more ambulation where he felt that there was significant knee pain and he should have not been able to do that much. However, the therapist did indicate that prior to the patient's arriving on the floor, he did ambulate about 100 feet. He had no compla ints and did well, but she came in. He did mention that there was more pain and she agreed and said that the therapist should have not worked him as hard. This was discussed with the therapist and the patient, and it is indicated we will adjust his medications, so he will have more pain medication pr ior to his therapy and he may be able to get some more time in between sessions. Review of Systems: No fevers, chills, nausea, vomiting. He has noted some bilateral knee pain, myalgias, and arthralgia s. Physical Examination: Vital Signs: Blood pressure 110/63, pulse 82, respiratory rate 16, temperature 97.5, oxygen saturati on 93% General: Mr. Jimenez is lying in bed. His is at bedside. HEENT: He is normocephalic, atraumatic. Sclerae are anicteric. Oropharynx pink and moist. Neck: Supple. Chest: Clear. Extremities: He does have giveaway weakness in the lower extremities. Laboratory Studies: No new laboratory studies except blood sugars ranged from 68 to 194. Medications: He is now started on duloxetine 20 mg daily. His gabapentin dosage was increased from 100 mg twice daily to 300 mg twice daily. Continue with Amaryl for diabetes mellitus, Synthroid for hypothyroidism, magnesium for muscle spasms, midodrine for pressure support, Paxil for depression, sp ironolactone for fluid management, Senokot-S for constipation, Lipitor for dyslipidemia, and Zyrtec f or his allergies. Progress Made With Physical And Occupational Therapy: Today, he ambulated 90 feet with minimum prasanna tance, but actually was easily distracted as he was doing therapy. He has some difficulty focusing. He did also ambulate later 15 feet twice with minimum assistance. With occupational therapy, supine -to-sit transfers done with minimum assistance, was independent with washing his hands and face. Wit h speech, recall 3 of 3 unrelated pictures from a previous session, used organizational thinking to n harjeet 5 items for abstract category with 100% accuracy and hkqazhrw-kl-[id number] assistance. Four items for sequence with 70% accuracy and moderate assistance. Mr. Jimenez is making fair overall progress with physical, occupational, and speech therapy; is still somewhat affected by pain, but pain medications have been adjusted today. Assessment: Mr. Jimneez is an 87-year-old patient in the rehabilitation unit with lumbar radiculopat hy and muscle spasms. He is making again fair progress with physical, occupational, and speech thera py. He has mild cognitive impairment, which is helped by speech therapy. Comorbidities are arthriti s, coronary artery disease, cardiomyopathy, congestive heart failure, decreased mental functioning, d ecreased mobility, hypertension, hypothyroidism, orthostatic hypotension, and urinary tract infection . Plan: 1.Continue with physical, occupational, and speech therapy for 3-1/2 hours, 5 out of 7 days. 2.Continue Eliquis for DVT prophylaxis, Lipitor for dyslipidemia, Tylenol and gabapentin for pain al julius with a lidocaine patch, magnesium for muscle spasms. Continue Amaryl for diabetes, Synthroid for hypothyroidism, Paxil for depression, Senokot for constipation. Comorbidities That Continue To Impact His Rehabilitation: Currently, his significant pain makes it d ifficult to do therapy without stopping to rest due to pain and pain medications have been adjusted. His orthostatic related blood pressure changes have been addressed and he is actually doing better from t hat standpoint. LB/SANDRAL Voice ID: [id number] Report ID: [id number]
[2023-04-26] MEDS: LEVOTHYROXINE SOD 0.025 MG TAB PO SCH (05:24)
[2023-04-26] MEDS: INSULIN REGULAR (HUMAN) 100 UNIT/ML SQ SCH ×4 (06:50→20:01)
[2023-04-26] MEDS: MIDODRINE HCL 5 MG TABLET PO SCH (06:51)
[2023-04-26] MEDS: MAGNESIUM OXIDE 400 MG TAB PO SCH ×2 (07:09→19:37)
[2023-04-26] MEDS: GLIMEPIRIDE 2 MG TABLET PO SCH ×2 (07:09→17:36)
[2023-04-26] MEDS: SACUBITRIL/VALSARTAN 24/26 MG TAB PO SCH ×2 (07:09→19:37)
[2023-04-26] MEDS: LIDOCAINE 4% PATCH TOP SCH (07:09)
[2023-04-26] MEDS: DULOXETINE 20 MG CAP PO SCH (07:09)
[2023-04-26] MEDS: ATORVASTATIN 20 MG TAB PO SCH (07:09)
[2023-04-26] MEDS: APIXABAN 2.5 MG TABLET PO SCH ×2 (07:09→19:37)
[2023-04-26] MEDS: MULTIVITAMIN TAB PO SCH (07:09)
[2023-04-26] MEDS: CRANBERRY FRUIT EXTRACT 200 MG CAP PO SCH ×2 (07:09→19:37)
[2023-04-26] MEDS: carvediloL 3.125 MG TAB PO SCH ×2 (07:09→17:35)
[2023-04-26] MEDS: CYANOCOBALAMIN 1,000 MCG TAB PO SCH (07:09)
[2023-04-26] MEDS: FAMOTIDINE 20 MG TAB PO SCH ×2 (07:10→19:38)
[2023-04-26] MEDS: SPIRONOLACTONE 25 MG TABLET PO SCH (07:10)
[2023-04-26] MEDS: GLUCERNA SHAKE 237 ML CAN PO SCH ×2 (08:00→19:38)
[2023-04-26] MEDS: ACETAMINOPHEN 500 MG TAB PO PRN (08:17)
[2023-04-26] MEDS: PREVAGEN PO SCH (08:20)
[2023-04-26] MEDS: GABAPENTIN 300 MG CAP PO SCH ×2 (08:20→19:38)
[2023-04-26] MEDS: MELATONIN 5 MG TABLET PO PRN (19:36)
[2023-04-26] MEDS: PARoxetine HCL 10 MG TAB PO SCH (19:37)
[2023-04-27 03:53] LABS: Absolute Lymphocytes (CBC) 3.2 K/uL (0.7-4.9); Hematocrit 30.8 % (39.6-49.0); Lymphocytes % 34.8 % (15.3-44.8); MCV 88.5 fL (80-100); MPV 7.6 fL (7.6-11.3); Platelets 289 thou/uL (152-406); RBC Red Blood Cell Count 3.48 M/uL (4.33-5.43)
[2023-04-27 04:02] LABS: Magnesium 2.5 mg/dL (1.6-2.4); Potassium 4.2 mEq/L (3.5-5.1); Prealbumin 21.4 mg/dL (20-40)
[2023-04-27] MEDS: LEVOTHYROXINE SOD 0.025 MG TAB PO SCH (05:29)
[2023-04-27] MEDS: INSULIN REGULAR (HUMAN) 100 UNIT/ML SQ SCH ×4 (06:51→20:03)
[2023-04-27] MEDS: SACUBITRIL/VALSARTAN 24/26 MG TAB PO SCH ×2 (08:33→20:03)
[2023-04-27] MEDS: LIDOCAINE 4% PATCH TOP SCH (08:33)
[2023-04-27] MEDS: CRANBERRY FRUIT EXTRACT 200 MG CAP PO SCH ×2 (08:33→20:02)
[2023-04-27] MEDS: MULTIVITAMIN TAB PO SCH (08:34)
[2023-04-27] MEDS: APIXABAN 2.5 MG TABLET PO SCH ×2 (08:34→20:03)
[2023-04-27] MEDS: GABAPENTIN 300 MG CAP PO SCH ×2 (08:34→20:03)
[2023-04-27] MEDS: ATORVASTATIN 20 MG TAB PO SCH (08:34)
[2023-04-27] MEDS: GLIMEPIRIDE 2 MG TABLET PO SCH ×2 (08:34→17:18)
[2023-04-27] MEDS: CYANOCOBALAMIN 1,000 MCG TAB PO SCH (08:35)
[2023-04-27] MEDS: DULOXETINE 20 MG CAP PO SCH (08:35)
[2023-04-27] MEDS: FAMOTIDINE 20 MG TAB PO SCH ×2 (08:35→20:03)
[2023-04-27] MEDS: MAGNESIUM OXIDE 400 MG TAB PO SCH ×2 (08:35→20:03)
[2023-04-27] MEDS: carvediloL 3.125 MG TAB PO SCH ×2 (08:35→17:18)
[2023-04-27] MEDS: ACETAMINOPHEN 500 MG TAB PO PRN (08:36)
[2023-04-27] MEDS: SPIRONOLACTONE 25 MG TABLET PO SCH (08:37)
[2023-04-27] MEDS: MIDODRINE HCL 5 MG TABLET PO SCH (08:52)
[2023-04-27] MEDS: PREVAGEN PO SCH (08:53)
[2023-04-27] MEDS: GLUCERNA SHAKE 237 ML CAN PO SCH ×2 (09:11→20:02)
[2023-04-27 10:30] LABS: Specific Gravity 1.009 (1.005-1.030); Urine Bacteria None Seen /HPF (<20); Urine Bilirubin NEGATIVE (Negative); Urine Blood Negative (Negative); Urine Clarity Clear (Clear); Urine Color Colorless (Yellow); Urine Glucose NEGATIVE (Negative); Urine Protein NEGATIVE (Negative); Urine RBC <5 /HPF (None Seen); Urine Urobilinogen Normal (Normal); Urine pH 6.5 (5.0-7.0)
[2023-04-27] MEDS: MELATONIN 5 MG TABLET PO PRN (20:02)
[2023-04-27] MEDS: PARoxetine HCL 10 MG TAB PO SCH (20:02)
--- NOTE | 2023-04-27 21:58 | PN ---
Date of Progress Note: 04/27/2023 Time Of Service: 1:00 p.m. Subjective: Mr. Jimenez is in his room. His and family members are at the bedside. He is doin g well. Has no new complaints. He is very happy with his ability to improve with the therapy and is not reporting any pain, any issues that are debilitating despite his lumbar radiculopathy that is ma naged well. Review of Systems: No fevers, chills. No significant nausea or vomiting. No myalgias, arthralgias and no rash today. Physical Examination: Vital Signs: Blood pressure 116/56, pulse 68, respiratory rate of 16, temperature 97.8, oxygen satur ation 94%. Neuro: Mr. Jimenez is resting in bed. He is very communicative. He has no expressive or receptive aphasias. Does tend to be somewhat repetitive in his conversations. No cranial nerve deficits. Chest: Clear. Heart: Regular. Extremities: Show no significant edema, cyanosis, or clubbing. Laboratory Studies: White blood cell count 9.2, hemoglobin 10.7, platelets 289. Sodium 139, potassi um 4.2, chloride 107, carbon dioxide 28, BUN 34, creatinine 1.42. Creatinine on 04/25/2023 was 1.46. Today, blood sugars ranged from 75 up to 219, calcium 9.0. Magnesium 2.5, albumin 3.0. Prealbumin 21.4. Urinalysis done today is completely normal. X-ray/imaging: No new x-rays or imaging. Medications: His medications have been reviewed and remain unchanged. Yesterday, he was put on dulo xetine 20 mg daily. Otherwise, all medications are unchanged. Progress Made With Physical And Occupational Therapy: Today with physical therapy, he was able to ma nage turning in bed with contact guard to minimum assistance. He did require hand holding assistance , is unable to reach across to pull on the bed rail. He did propel a wheelchair 100 feet twice. He ambulated 40 feet with a rolling walker with minimum assistance. With occupational therapy, he self propelled wheels from the room to the gym in the wheelchair with verbal cues for hand placement. He is encouraged to keep participating during the therapy session. With speech, he sequences 4 words in to a logical order indicating improved organizational thinking. He scored 100% on his task with mini mum cues. He recalled 4/4 unrelated words after 3 and 5 minutes given moderate semantic cues. Mr. Jimenez is making fair overall progress with physical and occupational therapy, but better so wit h speech therapy. Still somewhat limited in his ability to ambulate. Only short distances, mobilestrellai ng better with a wheelchair and beginning to perform his ADLs with improvement. He is not significan tly limited by pain as that is mitigated by different modalities. Assessment: Mr. Jimenez is an 87-year-old patient admitted to the inpatient rehabilitation unit with lumbar radiculopathy, muscle spasms, who is making again fair overall progress with physical, occupa tional, speech therapy. He has orthostatic hypotension, which is improved. Urinary tract infection is treated and resolved, hypothyroidism, hypertension, decreased mobility, arthritis, coronary artery disease, cardiomyopathy, congestive heart failure. Plan: 1.Continue with physical, occupational, and speech therapy for 3.5 hours, 5/7 days. 2.Continue his comorbid conditions and medications including his DVT prophylaxis with Eliquis, Lipit or for dyslipidemia, Amaryl for diabetes mellitus, Synthroid for hypothyroidism, Paxil for depression , Senokot for constipation, lidocaine patch and gabapentin for pain along with Tylenol for pain. Comorbidities That Continue To Impact His Rehabilitation: Currently, the pain is managed well and no t negatively impacting his rehabilitation. He does have good mood. His blood sugars are better. Again, blood pressures have been better, systolic in the 120s, high one teens. LB/MODL Voice ID: [id number] Report ID: [id number]
[2023-04-28] MEDS: LEVOTHYROXINE SOD 0.025 MG TAB PO SCH (05:19)
[2023-04-28] MEDS: INSULIN REGULAR (HUMAN) 100 UNIT/ML SQ SCH ×4 (07:25→21:07)
[2023-04-28] MEDS: MIDODRINE HCL 5 MG TABLET PO SCH (07:31)
[2023-04-28] MEDS: LIDOCAINE 4% PATCH TOP SCH ×2 (08:00→08:14)
[2023-04-28] MEDS: APIXABAN 2.5 MG TABLET PO SCH ×2 (08:15→19:12)
[2023-04-28] MEDS: MULTIVITAMIN TAB PO SCH (08:15)
[2023-04-28] MEDS: DULOXETINE 20 MG CAP PO SCH (08:15)
[2023-04-28] MEDS: ATORVASTATIN 20 MG TAB PO SCH (08:15)
[2023-04-28] MEDS: FAMOTIDINE 20 MG TAB PO SCH ×2 (08:16→19:14)
[2023-04-28] MEDS: SPIRONOLACTONE 25 MG TABLET PO SCH (08:16)
[2023-04-28] MEDS: GABAPENTIN 300 MG CAP PO SCH ×2 (08:17→19:13)
[2023-04-28] MEDS: CYANOCOBALAMIN 1,000 MCG TAB PO SCH (08:17)
[2023-04-28] MEDS: GLIMEPIRIDE 2 MG TABLET PO SCH ×2 (08:17→17:33)
[2023-04-28] MEDS: CRANBERRY FRUIT EXTRACT 200 MG CAP PO SCH ×2 (08:17→19:12)
[2023-04-28] MEDS: ACETAMINOPHEN 500 MG TAB PO PRN (08:18)
[2023-04-28] MEDS: carvediloL 3.125 MG TAB PO SCH ×2 (08:19→17:33)
[2023-04-28] MEDS: SACUBITRIL/VALSARTAN 24/26 MG TAB PO SCH ×2 (08:19→19:12)
[2023-04-28] MEDS: GLUCERNA SHAKE 237 ML CAN PO SCH ×2 (09:38→19:13)
[2023-04-28] MEDS: MAGNESIUM OXIDE 400 MG TAB PO SCH ×2 (09:39→19:13)
[2023-04-28] MEDS: PREVAGEN PO SCH (12:28)
--- NOTE | 2023-04-28 13:11 | P.RH.PN ---
Estimated Length of Stay: 16 Expected Discharge Date: 05/04/23 Discharge Disposition Plan: Home Family Support: Yes [facility]sp Goal: Mobility, Transfers, Self Care Vital Signs: Last Vital Signs Temp 96.8 F 04/28/23 08:00 Pulse 62 04/28/23 08:19 Resp 14 04/28/23 08:00 BP 117/67 04/28/23 08:19 Pulse Ox 93 04/28/23 08:00 Laboratory: Laboratory Last Values WBC 9.20 thou/uL (4.3-10.9) 04/27/23 03:02 RBC 3.48 M/uL (4.33-5.43) L 04/27/23 03:02 Hgb 10.7 g/dL (13.6-17.9) L 04/27/23 03:02 Hct 30.8 % (39.6-49.0) L 04/27/23 03:02 MCV 88.5 fL (80-100) 04/27/23 03:02 MCH 30.8 pg (27.0-35.0) 04/27/23 03:02 MCHC 34.8 g/dL (32.0-36.0) 04/27/23 03:02 RDW 14.2 % (12.1-15.2) 04/27/23 03:02 Plt Count 289 thou/uL (152-406) 04/27/23 03:02 MPV 7.6 fL (7.6-11.3) 04/27/23 03:02 Neutrophils % 49.9 % (41.7-73.7) 04/27/23 03:02 Lymphocytes % 34.8 % (15.3-44.8) 04/27/23 03:02 Monocytes % 10.6 % (3.3-12.3) 04/27/23 03:02 Eosinophils % 4.3 % (0-4.4) 04/27/23 03:02 Basophils % 0.4 % (0-1.3) 04/27/23 03:02 Absolute Neutrophils 4.6 K/uL (1.8-8.0) 04/27/23 03:02 Absolute Lymphocytes 3.2 K/uL (0.7-4.9) 04/27/23 03:02 Absolute Monocytes 1.0 K/uL (0.1-1.3) 04/27/23 03:02 Absolute Eosinophils 0.4 K/uL (0-0.5) 04/27/23 03:02 Absolute Basophils 0.0 K/uL (0-0.5) 04/27/23 03:02 Sodium 139 mEq/L (136-145) 04/27/23 03:02 Potassium 4.2 mEq/L (3.5-5.1) 04/27/23 03:02 Chloride 107 mEq/L (98-107) 04/27/23 03:02 Carbon Dioxide 28 mEq/L (21-32) 04/27/23 03:02 Anion Gap 8.2 mEq/L (5.0-15.0) 04/27/23 03:02 BUN 34 mg/dL (7-18) H 04/27/23 03:02 Creatinine 1.42 mg/dL (0.70-1.30) H 04/27/23 03:02 Est GFR (CKD-EPI) 48 ml/min (=/>90) L 04/27/23 03:02 Glucose 100 mg/dL (74-106) 04/27/23 03:02 POC Glucose 143 mg/dL (65-120) H 04/28/23 11:05 Calcium 9.0 mg/dL (8.5-10.1) 04/27/23 03:02 Magnesium 2.5 mg/dL (1.6-2.4) H 04/27/23 03:02 NT-Pro-B Natriuret Pep 63 pg/mL (<450) 04/20/23 08:31 Albumin 3.0 g/dL (3.4-5.0) L 04/27/23 03:02 Prealbumin 21.4 mg/dL (20-40) 04/27/23 03:02 Urine Color Colorless (Yellow) 04/27/23 09:00 Urine Clarity Clear (Clear) 04/27/23 09:00 Urine pH 6.5 (5.0-7.0) 04/27/23 09:00 Ur Specific [place] 1.009 (1.005-1.030) 04/27/23 09:00 Glucose (UA)(Auto) Negative (Negative) 04/27/23 09:00 Urine Ketones Negative (Negative) 04/27/23 09:00 Urine Blood Negative (Negative) 04/27/23 09:00 Urine Nitrite Negative (Negative) 04/27/23 09:00 Urine Bilirubin Negative (Negative) 04/27/23 09:00 Urine Urobilinogen Normal (Normal) 04/27/23 09:00 Ur Leukocyte Esterase Negative Melly/uL (Negative) 04/27/23 09:00 Urine RBC <5 /HPF (None Seen) 04/27/23 09:00 Urine WBC <5 /HPF (<5) 04/27/23 09:00 Ur Squamous Epith Cells None seen /HPF (None Seen) 04/27/23 09:00 Urine Bacteria None seen /HPF (<20) 04/27/23 09:00 Urine Culture Reflexed Not needed 04/27/23 09:00 Urine Total Protein Negative (Negative) 04/27/23 09:00 SARS-CoV-2 Rap RNA(RT-PCR) Negative (NEGATIVE) 04/19/23 12:34 Weight: 213 lb 3.2 oz Wound Present: No Closed Surgical Incision Present: No Negative Pressure Wound Therapy Present: No Physician Update: Labs reviewed and are stable with 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 Stage I breakdown on the buttocks. Met 3/4 speech goals. Poor insight and short term memory. Met 5/5 STG and 3/6 LTG. Wheelchair 100' with CGA. Walk 50' with RW. SBA for supine to sit. Min assist with transfers from the bed. Summary: Patient's care plan and salvage determiner goals have been reviewed and revised as necessary. Please see the Rehabilitation Signature page for all necessary signatures.
--- NOTE | 2023-04-28 14:04 | EKG ---
Test Date: 2023-04-21 Test Time: 14:40:36 Speech And Drama Teacher: DARIUS MEASUREMENT RESULTS: Intervals: Rate: 67 ME: 200 QRSD: 114 QT: 396 QTc: 418 [place]: P: 45 ME: 200 QRS: 9 T: 95 INTERPRETIVE STATEMENTS: Sinus rhythm with premature atrial complexes Low voltage QRS Cannot rule out Anterior infarct, age undetermined Abnormal ECG No previous ECG available for comparison Electronically Signed On 04-28-23 13:48:02 CLOTH HAND by Darien Cash
[2023-04-28] MEDS: PARoxetine HCL 10 MG TAB PO SCH (19:17)
[2023-04-29] MEDS: LEVOTHYROXINE SOD 0.025 MG TAB PO SCH (05:21)
[2023-04-29] MEDS: ACETAMINOPHEN 500 MG TAB PO PRN (05:32)
[2023-04-29] MEDS: INSULIN REGULAR (HUMAN) 100 UNIT/ML SQ SCH ×4 (07:28→19:52)
[2023-04-29] MEDS: MIDODRINE HCL 5 MG TABLET PO SCH (07:30)
[2023-04-29] MEDS: APIXABAN 2.5 MG TABLET PO SCH ×2 (07:55→19:50)
[2023-04-29] MEDS: GLIMEPIRIDE 2 MG TABLET PO SCH ×2 (07:55→16:54)
[2023-04-29] MEDS: SACUBITRIL/VALSARTAN 24/26 MG TAB PO SCH ×2 (07:55→19:51)
[2023-04-29] MEDS: CRANBERRY FRUIT EXTRACT 200 MG CAP PO SCH ×2 (07:55→19:51)
[2023-04-29] MEDS: CYANOCOBALAMIN 1,000 MCG TAB PO SCH (07:55)
[2023-04-29] MEDS: LIDOCAINE 4% PATCH TOP SCH (07:55)
[2023-04-29] MEDS: MAGNESIUM OXIDE 400 MG TAB PO SCH ×2 (07:56→19:51)
[2023-04-29] MEDS: DULOXETINE 20 MG CAP PO SCH (07:56)
[2023-04-29] MEDS: ATORVASTATIN 20 MG TAB PO SCH (07:56)
[2023-04-29] MEDS: MULTIVITAMIN TAB PO SCH (07:56)
[2023-04-29] MEDS: FAMOTIDINE 20 MG TAB PO SCH ×2 (07:56→19:50)
[2023-04-29] MEDS: GABAPENTIN 300 MG CAP PO SCH ×2 (07:56→19:51)
[2023-04-29] MEDS: carvediloL 3.125 MG TAB PO SCH ×2 (07:57→16:54)
[2023-04-29] MEDS: SPIRONOLACTONE 25 MG TABLET PO SCH (07:57)
[2023-04-29] MEDS: GLUCERNA SHAKE 237 ML CAN PO SCH ×2 (10:59→19:52)
[2023-04-29] MEDS: PREVAGEN PO SCH (10:59)
[2023-04-29] MEDS: MELATONIN 5 MG TABLET PO PRN (19:51)
[2023-04-29] MEDS: PARoxetine HCL 10 MG TAB PO SCH (19:51)
[2023-04-30] MEDS: LEVOTHYROXINE SOD 0.025 MG TAB PO SCH (05:35)
[2023-04-30] MEDS: MIDODRINE HCL 5 MG TABLET PO SCH (06:36)
[2023-04-30] MEDS: INSULIN REGULAR (HUMAN) 100 UNIT/ML SQ SCH ×4 (07:30→19:45)
[2023-04-30] MEDS: FAMOTIDINE 20 MG TAB PO SCH ×2 (07:50→19:44)
[2023-04-30] MEDS: MULTIVITAMIN TAB PO SCH (07:50)
[2023-04-30] MEDS: ATORVASTATIN 20 MG TAB PO SCH (07:50)
[2023-04-30] MEDS: APIXABAN 2.5 MG TABLET PO SCH ×2 (07:50→19:44)
[2023-04-30] MEDS: DULOXETINE 20 MG CAP PO SCH (07:50)
[2023-04-30] MEDS: CYANOCOBALAMIN 1,000 MCG TAB PO SCH (07:50)
[2023-04-30] MEDS: CRANBERRY FRUIT EXTRACT 200 MG CAP PO SCH ×2 (07:50→19:45)
[2023-04-30] MEDS: MAGNESIUM OXIDE 400 MG TAB PO SCH ×2 (07:51→19:45)
[2023-04-30] MEDS: carvediloL 3.125 MG TAB PO SCH ×2 (07:51→16:29)
[2023-04-30] MEDS: GLIMEPIRIDE 2 MG TABLET PO SCH ×2 (07:51→16:29)
[2023-04-30] MEDS: SPIRONOLACTONE 25 MG TABLET PO SCH (07:51)
[2023-04-30] MEDS: LIDOCAINE 4% PATCH TOP SCH (07:51)
[2023-04-30] MEDS: SACUBITRIL/VALSARTAN 24/26 MG TAB PO SCH ×2 (07:52→19:45)
[2023-04-30] MEDS: GLUCERNA SHAKE 237 ML CAN PO SCH ×2 (09:05→19:45)
[2023-04-30] MEDS: PREVAGEN PO SCH (09:05)
[2023-04-30] MEDS: GABAPENTIN 300 MG CAP PO SCH ×2 (09:08→19:44)
[2023-04-30 16:21] LABS: Urine Bacteria None Seen /HPF (<20); Urine Bilirubin NEGATIVE (Negative); Urine Blood Negative (Negative); Urine Clarity Clear (Clear); Urine Color Light-Yellow (Yellow); Urine Glucose NEGATIVE (Negative); Urine Mucus Slight /HPF (None Seen); Urine Protein NEGATIVE (Negative); Urine RBC <5 /HPF (None Seen); Urine Urobilinogen Normal (Normal)
[2023-04-30] MEDS: MELATONIN 5 MG TABLET PO PRN (19:44)
[2023-04-30] MEDS: PARoxetine HCL 10 MG TAB PO SCH (19:47)
[2023-04-30] MEDS: DONEPEZIL HCL 5 MG TAB PO SCH (19:47)
[2023-05-01] MEDS: LEVOTHYROXINE SOD 0.025 MG TAB PO SCH (05:24)
[2023-05-01] MEDS: INSULIN REGULAR (HUMAN) 100 UNIT/ML SQ SCH ×4 (07:02→20:33)
[2023-05-01 07:13] LABS: Absolute Lymphocytes (CBC) 2.5 K/uL (0.7-4.9); Hematocrit 32.2 % (39.6-49.0); Lymphocytes % 29.6 % (15.3-44.8); MCV 89.2 fL (80-100); MPV 7.2 fL (7.6-11.3); Platelets 279 thou/uL (152-406); RBC Red Blood Cell Count 3.61 M/uL (4.33-5.43)
[2023-05-01 07:26] LABS: Potassium 4.3 mEq/L (3.5-5.1)
[2023-05-01] MEDS: MULTIVITAMIN TAB PO SCH (08:00)
[2023-05-01] MEDS: GABAPENTIN 300 MG CAP PO SCH ×2 (08:18→19:09)
[2023-05-01] MEDS: GLIMEPIRIDE 2 MG TABLET PO SCH ×2 (08:18→16:29)
[2023-05-01] MEDS: SACUBITRIL/VALSARTAN 24/26 MG TAB PO SCH ×2 (08:18→19:10)
[2023-05-01] MEDS: carvediloL 3.125 MG TAB PO SCH ×2 (08:18→16:29)
[2023-05-01] MEDS: FAMOTIDINE 20 MG TAB PO SCH ×2 (08:19→19:09)
[2023-05-01] MEDS: DULOXETINE 20 MG CAP PO SCH (08:19)
[2023-05-01] MEDS: CYANOCOBALAMIN 1,000 MCG TAB PO SCH (08:19)
[2023-05-01] MEDS: CRANBERRY FRUIT EXTRACT 200 MG CAP PO SCH ×2 (08:19→19:09)
[2023-05-01] MEDS: ATORVASTATIN 20 MG TAB PO SCH (08:19)
[2023-05-01] MEDS: MIDODRINE HCL 5 MG TABLET PO SCH (08:19)
[2023-05-01] MEDS: APIXABAN 2.5 MG TABLET PO SCH ×2 (08:19→19:09)
[2023-05-01] MEDS: ACETAMINOPHEN 500 MG TAB PO PRN (08:20)
[2023-05-01] MEDS: LIDOCAINE 4% PATCH TOP SCH (08:20)
[2023-05-01] MEDS: PREVAGEN PO SCH (08:27)
[2023-05-01 08:48] VITALS: BMI 4198.5
[2023-05-01] MEDS: GLUCERNA SHAKE 237 ML CAN PO SCH ×2 (09:09→19:10)
[2023-05-01] MEDS: MAGNESIUM OXIDE 400 MG TAB PO SCH ×2 (09:09→19:10)
[2023-05-01] MEDS: SPIRONOLACTONE 25 MG TABLET PO SCH (09:10)
[2023-05-01] MEDS: DONEPEZIL HCL 5 MG TAB PO SCH (19:15)
[2023-05-01] MEDS: PARoxetine HCL 10 MG TAB PO SCH (19:15)
--- NOTE | 2023-05-01 23:13 | PN ---
Date of Progress Note: 05/01/2023 Time Of Service: 1:05 p.m. Subjective: Mr. Jimenez is ambulating around the unit. He is not in pain. He denies any significan t complaints despite the back pain. Medications are adequate. Review of Systems: No fevers, chills, myalgias, arthralgias, rash, headache, weight change. No nausea, vomiting. No ot her positives. Physical Examination: Vital Signs: Blood pressure 121/63, pulse 77, respiratory rate 18, temperature 97.9, oxygen saturati on 95%. General: Mr. Jimenez is ambulating with a rolling walker, gait belt on, and therapist towed wheelcha ir behind him. HEENT: He is normocephalic, atraumatic. Sclerae anicteric. Oropharynx pink and moist. Neck: Supple. Chest: Clear. Neurologic: He has no focal deficits. Laboratory Studies: White blood cell count 8.4, hemoglobin 11.2, platelets 279. Sodium 139, potassi um 4.3, chloride 106, carbon dioxide 28, BUN 31, creatinine 1.34. His glucose ranged today from 88 t o 222. Calcium 9.3. X-ray/imaging: No new x-rays or imaging. Medications: His medications have been reviewed and remain unchanged. Progress Made With Physical And Occupational Therapy: With physical therapy today, he was modified i ndependent with bed mobilization. Yrw-ro-ljzec transfers, modified independence. He completed ambul ation with a walker with 150 feet with verbal cues with a few rest breaks. Wheelchair mobilization o f 150 feet with modified independence. With occupational therapy, washed 10 of 10 body parts with as sistance and extra time. He is independent with upper and lower body dressing and grooming. With sp eech therapy, improved his BIMS score from 14 to 15 and the SLUMS score from 12 to 16. Mr. Jimenez has done very well with his therapy and is ready for discharge. He will be discharged in the morning. We will continue with therapy via Home Health. Family will be assisting. Assessment: Mr. Jimenez is an 87-year-old patient in the rehabilitation unit with lumbar radiculopat hy, which is managed well with multiple modalities. His comorbidities include resolved urinary tract infection, arthritis, coronary artery disease, hypothyroidism, hypertension, cardiomyopathy, congest yeni heart failure. Plan: 1.For now, continue with physical, occupational, and speech therapy for 3.5 hours, 5 of 7 days. 2.He will be discharged in the morning and will continue therapy via Home Health. 3.All of his comorbid condition medications will be continued after discharge, and he will follow up with his primary care physician and surgeons as scheduled. Comorbidities That Continue To Impact Rehabilitation: He does have cognitive impairment and is start ed on donepezil 5 mg daily. That medication will be continued at home and on followup in clinic, Dr. Pérez will increase medication, over 6 to 8-week period, to 10 mg twice daily for maintenance. KEENAN/SHAHEEN Voice ID: [id number] Report ID: [id number]
[2023-05-02] MEDS: LEVOTHYROXINE SOD 0.025 MG TAB PO SCH (05:43)
[2023-05-02] MEDS: INSULIN REGULAR (HUMAN) 100 UNIT/ML SQ SCH (07:30)
[2023-05-02] MEDS: CRANBERRY FRUIT EXTRACT 200 MG CAP PO SCH (07:45)
[2023-05-02] MEDS: DULOXETINE 20 MG CAP PO SCH (07:45)
[2023-05-02] MEDS: GLIMEPIRIDE 2 MG TABLET PO SCH (07:45)
[2023-05-02] MEDS: carvediloL 3.125 MG TAB PO SCH (07:45)
[2023-05-02] MEDS: SACUBITRIL/VALSARTAN 24/26 MG TAB PO SCH (07:45)
[2023-05-02] MEDS: CYANOCOBALAMIN 1,000 MCG TAB PO SCH (07:45)
[2023-05-02] MEDS: ATORVASTATIN 20 MG TAB PO SCH (07:46)
[2023-05-02] MEDS: GABAPENTIN 300 MG CAP PO SCH (07:46)
[2023-05-02] MEDS: FAMOTIDINE 20 MG TAB PO SCH (07:46)
[2023-05-02] MEDS: APIXABAN 2.5 MG TABLET PO SCH (07:46)
[2023-05-02] MEDS: MULTIVITAMIN TAB PO SCH (07:46)
[2023-05-02] MEDS: MIDODRINE HCL 5 MG TABLET PO SCH (07:46)
[2023-05-02] MEDS: LIDOCAINE 4% PATCH TOP SCH (07:46)
[2023-05-02] MEDS: MAGNESIUM OXIDE 400 MG TAB PO SCH (07:48)
[2023-05-02 07:51] VITALS: BP 135/60
[2023-05-02] MEDS: SPIRONOLACTONE 25 MG TABLET PO SCH (08:00)
[2023-05-02] MEDS: GLUCERNA SHAKE 237 ML CAN PO SCH (08:00)
[2023-05-02] MEDS: PREVAGEN PO SCH (09:06)
[2023-05-02 09:20] VITALS: TEMP 97.3
--- NOTE | 2023-05-14 23:08 | DS ---
Date of Discharge: 05/02/2023 Discharge Diagnoses: Lumbar radiculopathy, arthritis, coronary artery disease, cardiomyopathy, conge stive heart failure, decreased mobility, decreased physical functioning, diabetes mellitus, orthostat ic hypotension, recurrent falls, urinary tract infection, urine and stool incontinence. Discharge Condition: Fair. Discharge Activity: Weightbearing as tolerated. Diet: Heart healthy. Allergies: NO KNOWN DRUG ALLERGIES. Medications: Aldactone 25 mg daily, Entresto 1 tablet twice daily, Paxil 30 mg at bedtime, magnesium oxide 400 mg twice daily, levothyroxine daily, Amaryl 4 mg twice daily, Pepcid 20 mg twice daily, Zy rtec 10 mg daily, carvedilol 6.25 mg twice daily, Lipitor 20 mg at bedtime, midodrine 5 mg daily, jayne atonin 5 mg at bedtime, lidocaine patch apply topically daily as needed, Glucerna 237 mL twice daily, gabapentin 300 mg twice daily, Cymbalta 200 mg daily, Aricept 5 mg daily, Senokot-S 2 at bedtime, vi tamin B12 1000 mcg daily, cranberry fruit extract 200 mg twice daily, aspirin 81 mg daily. Laboratory Studies: White blood cell 8.4, hemoglobin 11.2, platelets 279. Sodium 139, potassium 4.3 , chloride 106, carbon dioxide 29, BUN 31, creatinine 1.34, glucose ranged from 88 to 222, calcium 9. 3. Urinalysis completely normal twice. COVID-19 testing on 04/19/2023 is negative. X-ray/imaging: Chest x-ray done on 04/19/2023 showed no acute intrathoracic process. Synopsis Of Events That Led To Admission: Mr. Jimenez is an 87-year-old patient with multiple medica l problems as noted above, who has had multiple falls and he had one fall where he impacted his head, did not have skull fracture or internal bleeding. He was ambulated with a Rollator. He was unable to do so without help. He also had significant lower back pain and admitted very difficult to stand and to mobilize. He did become mostly bed bound. He was found to be incontinent of stool and urine, . He has had lower extremity edema, was found to be in congestive heart failure. Had ort hostatic hypotension and significant difficulty again standing and ambulating due to that. As a resu lt, he is beginning to have breakdown of areas such as dependent areas on the buttocks and heels and again he needed maximum assistance to be able to stand and ambulate and mobilize. He was then determ ined to be an appropriate candidate for acute inpatient rehabilitation and was admitted to the rehabi litation unit for physical, occupational, and speech therapy. Hospital Course: During hospitalization, despite his multiple comorbid conditions, he did well. Sandy adams, found to have an elevated white blood cell count of 12.7 on the , but all subsequent read ings became normal. Urinalysis twice showed normal urinalysis and cultures were negative. He has el ectrolytes, did show some mildly elevated creatinine at 1.34. The patient did have hydration. It wa s earlier in admission 1.42 and then improved to 1.34 as noted. Progress Made With Physical And Occupational Therapy Along With Speech Therapy: By his discharge wit h speech therapy, minimum assistance for comprehension, independent for expression, intelligibility 1 00%, his BIMS score improved from 14 to 15, SLUMS score from 12 to 16, still indicating some signific ant cognitive dysfunction. In terms of occupational therapy, tub and shower transfers, supervision, eating independent, grooming independent, bathing independent, upper body dressing independent, lower body dressing independent, toileting require minimum assistance. He was discharged to continue therapy via Home Health. In terms of his physical therapy by discharge, bed mobilization with stand pivot transfer was done wi th good tolerance and supervision. Gait, total of 1 feet with good tolerance, but poor balance and d ecreased endurance. Stairs, he was able to up and down 5 steps, fair tolerance, decreased endurance, car transfer done with fair tolerance, but poor balance, poor safety awareness and is recommended he continue with therapy via Home Health. Followup: With his primary care physician as scheduled. LB/MODL Voice ID: [id number] Report ID: [id number]
== END 2023-05-02 09:40 | disposition home health service (06) | DRG 552 ==
LOC: 5TH 10:00
PROVIDERS: ADMIT Psychiatry & Neurology Neurology with Special Qualifications in Child Neurology; ATTEND Psychiatry & Neurology Neurology with Special Qualifications in Child Neurology
DX: M54.16 Radiculopathy, lumbar region (principal); E46 Unspecified protein-calorie malnutrition; N39.0 Urinary tract infection, site not specified; I42.9 Cardiomyopathy, unspecified; I95.1 Orthostatic hypotension; R32 Unspecified urinary incontinence; M62.838 Other muscle spasm; K59.00 Constipation, unspecified; R15.9 Full incontinence of feces; I11.0 Hypertensive heart disease with heart failure; I50.9 Heart failure, unspecified; E11.9 Type 2 diabetes mellitus without complications; I25.10 Atherosclerotic heart disease of native coronary artery without angina pectoris; M19.90 Unspecified osteoarthritis, unspecified site; F32.A Depression, unspecified; E78.5 Hyperlipidemia, unspecified; E03.9 Hypothyroidism, unspecified; G47.00 Insomnia, unspecified
CPT/HCPCS: 36415; 71045; 80048; 81001; 82040; 82947; 83735; 83880; 84134; 85025; 87086; 87088; 87635; 92523; 93005; 97110; 97116; 97129; 97163; 97165; 97530; 97542; J1815; J2001; J7030

== ENCOUNTER 2023-10-15 07:35 | Inpatient (IN) | payer OTHER ==
--- OUTSIDE RECORDS SUMMARY | 2023-10-15 07:38 | XMS REPORT | Continuity of Care Document ---
Author Name Unknown Address [address] [place] [address] thconnect Address [address] [place] [address] Care Team Providers Care Customer Support Specialist Name Role Phone [email or web address]_ Attending Clinician Unavail able [email or web address]_ Admitting Clinician Unavail able Encounters Start Date/Time End Date/Time Encounter Type Admission Type Attending Clinicians Care Facility Care Department Encounter ID Source 2022-07-31 00:00:00 2022-07-31 00:00:00 [facility] PRIV [id number] [facility]
[2023-10-15] MEDS ORDERED: ACETAMINOPHEN 500 MG TAB ONE (08:07)
[2023-10-15] MEDS ORDERED: NA CHLORIDE 0.9% 100 ML ONE (08:08)
[2023-10-15] MEDS ORDERED: NA CHLORIDE 0.9% 1,000 ML ONE (08:08)
[2023-10-15] MEDS ORDERED: CEFEPIME 2 GM VIAL ONE (08:08)
[2023-10-15 08:14] LABS: Absolute Lymphocytes (CBC) 1.8 K/uL (0.7-4.9); Absolute Monocytes 1.4 K/uL (0.1-1.3); Absolute Neutrophil 19.4 K/uL (1.8-8.0); Basophils % 0.2 % (0-1.3); Hematocrit 35.5 % (39.6-49.0); Hemoglobin 12.1 g/dL (13.6-17.9); Lymphocytes % 8.1 % (15.3-44.8); MCH 29.8 pg (27.0-35.0); MCHC 34.1 g/dL (32.0-36.0); MCV 87.3 fL (80-100); MPV 7.2 fL (7.6-11.3); Monocytes % 6.2 % (3.3-12.3); Neutrophils % 85.5 % (41.7-73.7); Platelets 223 thou/uL (152-406); RBC Red Blood Cell Count 4.06 M/uL (4.33-5.43)
[2023-10-15 08:24] LABS: PT Prothrombin Time 13.9 SECONDS (9.4-12.5); PTT, Activated Partial Thromb 29.2 SECONDS (24.3-36.9); Protime INR 1.27
--- NOTE | 2023-10-15 08:29 | RAD REPORT ---
EXAM DESCRIPTION: RAD - Chest Single View - 10/15/2023 8:22 am CLINICAL HISTORY: FEVER COMPARISON: Chest Single View dated 04/19/2023 FINDINGS: Lines: None. Lungs: No evidence of edema or pneumonia. Pleural: No significant pleural effusions or pneumothorax. Cardiac: The heart size is within normal limits. Mediastinum: Within normal limits. Bones: No acute fractures. Other: None IMPRESSION: No acute cardiopulmonary disease.
[2023-10-15 08:47] LABS: ALT/SGPT 16 U/L (16-61); AST/SGOT < 10 U/L (15-37); Albumin 3.1 g/dL (3.4-5.0); Alkaline Phosphatase 85 U/L (45-117); Anion Gap 9.4 mEq/L (5.0-15.0); BUN Blood Urea Nitrogen 27 mg/dL (7-18); Bicarbonate 26 mEq/L (21-32); Bilirubin Total 1.1 mg/dL (0.2-1.0); Globulin 3.2 g/dL (2.3-3.5); Glomerular Filtration Rate 53 ml/min (=/>90); Glucose Level 202 mg/dL (74-106); Potassium 3.4 mEq/L (3.5-5.1); Protein, Total 6.3 g/dL (6.4-8.2); Sodium Level 135 mEq/L (136-145)
[2023-10-15 09:05] LABS: Anisocytosis 2+; Blood Morphology Comment NOTED (NOT SEEN); Hypochromasia 1+; Platelet Estimate ADEQ; Poikilocytosis 1+; White Blood Cell Scan OK (OK)
[2023-10-15 09:14] LABS: Specific Gravity 1.025 (1.005-1.030); Sqamous Epithelial None Seen /HPF (None Seen); Urine Bacteria 20-50 /HPF (<20); Urine Bilirubin NEGATIVE (Negative); Urine Blood 2+ (Negative); Urine Clarity Extremely Turbid (Clear); Urine Color Yellow (Yellow); Urine Culture Reflex Order REFLEXED; Urine Glucose NEGATIVE (Negative); Urine Ketones NEGATIVE (Negative); Urine Microscopic Reflex YN ORDER UMIC; Urine Mucus 4+ /HPF (None Seen); Urine Nitrite NEGATIVE (Negative); Urine Protein 1+ (Negative); Urine Urobilinogen 1+ (Normal); Urine WBC >50 /HPF (<5); Urine WBC Clump Few /HPF (None Seen)
--- NOTE | 2023-10-15 10:01 | ER ---
Nurse's Notes [facility] Name: Reji Jimenez Sr Age: 87 yrs Sex: Male : 1935 Arrival Date: 10/15/2023 Time: 07:35 Bed 13 Private MD: Diagnosis: UTI/ Urinary tract infection, site not specified;Sepsis, unspecified organism Presentation: 10/14 07:34 Chief complaint: EMS states: PT PICKED UP FROM HOME ALTERED, FEVER AND GENERAL db WEAKNESS. TEMP FOR EMS 104.7. TYLENOL TAKEN LAST NIGHT. Coronavirus screen: Client denies travel out of the [place] in the last 14 days. At this time, the client does not indicate any symptoms associated with coronavirus-19. Ebola Screen: Patient negative for fever greater than or equal to 101.5 degrees Fahrenheit, and additional compatible Ebola Virus Disease symptoms Patient denies exposure to infectious person. Patient denies travel to an Ebola-affected area in the 21 days before illness onset. No symptoms or risks identified at this time. Initial Sepsis Screen: Does the patient meet any 2 criteria? No. Patient's initial sepsis screen is negative. Does the patient have a suspected source of infection? No. Patient's initial sepsis screen is negative. Risk Assessment: Do you want to hurt yourself or someone else? Patient reports no desire to harm self or others. Onset of symptoms was October 14, 2023. Care prior to arrival: Medication(s) given: Normal saline infusion, 250 ML IV initiated. 22 GA, in the left hand. 07:34 Method Of Arrival: EMS: [facility] db 07:34 Acuity: TRACI 2 db Triage Assessment: 07:34 General: Appears in no apparent distress. comfortable, Behavior is calm, cooperative. db Pain: Denies pain. Neuro: Level of Consciousness is awake, alert, obeys commands, Oriented to person, place. Respiratory: Airway is patent Respiratory effort is even, unlabored, Respiratory pattern is regular, symmetrical. Historical: - Allergies: 07:46 UNKNOWN ANTIBIOTIC; db - PMHx: 07:46 Atrial fibrillation; db - Immunization history:: Adult Immunizations unknown. - Infectious Disease History:: Denies. - Social history:: Smoking status: Patient denies any tobacco usage or history of. Screenin:21 [facility] ED Fall Risk Assessment (Adult) History of falling in the last 3 months, db including since admission No falls in past 3 months (0 pts) Confusion or Disorientation Yes (5 pts) Intoxicated or Sedated No (0 pts) Impaired Gait Yes (1 pt) Mobility Assist Device Used Yes (1 pt) Altered Elimination No (0 pt) Score/Fall Risk Level 3 or more points = High Risk Oriented to surroundings, Maintained a safe environment, Educated pt \T\ family on fall prevention, incl call for assistance when getting out of bed, Assessed \T\ reinforced patient's understanding of fall precautions, Provided non-skid footwear, Hourly rounding (assess needs \T\ fall precautionary measures) done. 11:16 Abuse screen: Denies threats or abuse. Denies injuries from another. Nutritional db screening: No deficits noted. Tuberculosis screening: No symptoms or risk factors identified. Assessment: 07:45 Reassessment: SEE TRIAGE FOR INITIAL ASSESSMENT. db 08:35 Reassessment: PATIENT BRIEF CHANGED AND PLACED INTO A GOWN. db 08:49 Reassessment: Patient appears in no apparent distress at this time. Patient and/or db family updated on plan of care and expected duration. Pain level reassessed. General: Appears in no apparent distress. comfortable, Behavior is calm, cooperative, appropriate for age. Neuro: Level of Consciousness is awake, alert, obeys commands, Oriented to person, time, situation. Respiratory: Airway is patent Respiratory effort is even, unlabored, Respiratory pattern is regular, symmetrical. 09:50 Reassessment: Patient appears in no apparent distress at this time. Patient and/or db family updated on plan of care and expected duration. Pain level reassessed. DR. CRESPO AT PATIENT BEDSIDE PROVIDING PATIENT UPDATE. 10:30 Reassessment: Patient appears in no apparent distress at this time. Patient and/or db family updated on plan of care and expected duration. Pain level reassessed. FAMILY AT BEDSIDE Patient states symptoms have improved. 10:30 Reassessment: Patient appears in no apparent distress at this time. Patient and/or db family updated on plan of care and expected duration. Pain level reassessed. Patient states symptoms have improved. 10:37 Reassessment: FAXED REPORT TO UNIT. NO ANSWER WHEN CALLED. NOTIFIED DORA BARILLAS. db 11:11 Reassessment: PATINT BRIEF RECHECKED PRIOR TO GOING UPSTAIRS. CLEAN. FAMILY AT BEDSIDE. db Vital Signs: 07:34 BP 125 / 66; Pulse 100; Resp 22; Temp 101.5(O); Pulse Ox 94% on R/A; Weight 90.72 kg; db Height 6 ft. 0 in. ; 08:00 BP 127 / 76; Pulse 100; Resp 22; Pulse Ox 94% on R/A; db 09:05 BP 120 / 64; Pulse 88; Resp 24; Pulse Ox 94% on R/A; db 09:30 BP 127 / 64; Pulse 87; Resp 22; Pulse Ox 96% ; db 10:00 BP 122 / 74; Pulse 78; Resp 20; Temp 98.9(O); Pulse Ox 95% ; db 10:30 Temp 98.9; db 07:34 Body Mass Index 27.12 (90.72 kg, 182.88 cm) db ED Course: 07:34 Arm band placed on right wrist. Patient placed in an exam room. db 07:41 Patient arrived in ED. db 07:41 Alberto Crespo MD is Attending Physician. rt 07:45 Triage completed. db 07:48 First set of blood cultures drawn by me. db 08:00 Initial lab(s) drawn, by me, sent to lab. Second set of blood cultures drawn EKG done, db by ED staff, reviewed by Alberto Crespo MD. Inserted saline lock: 20 gauge in right wrist, using aseptic technique. Blood collected. 08:24 Chest Single View XRAY In Process Unspecified. EDMS 08:35 Straight cath inserted, using sterile technique, 14 Fr. Specimen obtained. Returned db cloudy urine. Patient tolerated well. 09:16 Cary Medellin, RN is Primary Nurse. db 09:21 Patient has correct armband on for positive identification. Placed in gown. Bed in low db position. Call light in reach. Side rails up X 1. Provided Education on: LABS AND RADIOLOGY, ANTIBIOTICS. Client placed on continuous cardiac and pulse oximetry monitoring. NIBP monitoring applied. monitoring coordinator on. Pulse ox on. NIBP on. Pillow given. 10:00 Alber Walker MD is Hospitalizing Provider. rt 11:16 No provider procedures requiring assistance completed. Patient admitted, IV remains in db place. Administered Medications: 08:11 Drug: Acetaminophen PO 1000 mg PO once Route: PO; db 11:18 Follow up: Response: No adverse reaction db 08:12 Drug: NS 0.9% IV 1000 ml IV at 1 bolus Per protocol; 1000 mL bolus Route: IV; Rate: 1 db bolus; Site: right wrist; 10:00 Follow up: Response: No adverse reaction; IV Status: Completed infusion; IV Intake: db 1000ml 08:30 Drug: Cefepime IVPB 2 grams IVPB at 200 ml/hr once over 30 mins; (mix in NS 100 mL) db Route: IVPB; Rate: 200 ml/hr; Infused Over: 30 mins; Site: right wrist; 09:15 Follow up: Response: No adverse reaction; IV Status: Completed infusion; IV Intake: db 100ml Medication: 11:16 VIS not applicable for this client. db Intake: 09:15 IV: 100ml; Total: 100ml. db 10:00 IV: 1000ml; Total: 1100ml. db Outcome: 10:00 Decision to Hospitalize by Provider. rt 11:16 Admitted to Med/surg accompanied by tech, family with patient, via stretcher, room 207, db with chart, Report called to FAXED TO UNIT ATTEMPTED TO CALL FOR QUESTIONS NO ANSWER 11:16 Condition: stable 11:16 Instructed on the need for admit, 11:18 Patient left the ED. db Signatures: Dispatcher [employer] Cary Bustillos RN RN Alberto Hatch MD MD rt Corrections: (The following items were deleted from the chart) 07:46 07:46 Allergies: No Known Allergies; db db 08:50 08:00 Initial lab(s) drawn, by me, sent to lab. Second set of blood cultures drawn db db 09:50 08:49 Reassessment: Patient appears in no apparent distress at this time. Patient db and/or family updated on plan of care and expected duration. Pain level reassessed. Patient is alert, oriented x 3, equal unlabored respirations, skin warm/dry/pink. db
--- NOTE | 2023-10-15 10:01 | EDPHYS ---
Physician Documentation [facility] Name: Reji Jimenez Sr Age: 87 yrs Sex: Male : 1935 Arrival Date: 10/15/2023 Time: 07:35 Bed 13 Private MD: ED Physician Alberto Mancera HPI: 10/14 07:56 This 87 yrs old Unknown Male presents to ER via EMS with complaints of Urinary Problem, rt Fever, General Weakness. 07:56 History limited due to patient with altered mental status. Patient presents to the ED rt with altered mental status, fever. Patient apparently fever last night, refused transport, symptoms persisted today, called ambulance for transport. No further history could be obtained per patient. Symptoms are moderate in severity, no other aggravating or alleviating factors.. Historical: - Allergies: 07:46 UNKNOWN ANTIBIOTIC; db - PMHx: 07:46 Atrial fibrillation; db - Immunization history:: Adult Immunizations unknown. - Infectious Disease History:: Denies. - Social history:: Smoking status: Patient denies any tobacco usage or history of. ROS: 07:56 Unable to obtain ROS due to altered mental status, rt Exam: 07:56 Head/Face: Normocephalic, atraumatic. Chest/axilla: Normal chest wall appearance and rt motion. Nontender with no deformity. No lesions are appreciated. Cardiovascular: Regular rate and rhythm with a normal S1 and S2. No gallops, murmurs, or rubs. Normal PMI, no JVD. No pulse deficits. Respiratory: Lungs have equal breath sounds bilaterally, clear to auscultation and percussion. No rales, rhonchi or wheezes noted. No increased work of breathing, no retractions or nasal flaring. Abdomen/GI: Soft, non-tender, with normal bowel sounds. No distension or tympany. No guarding or rebound. No evidence of tenderness throughout. Skin: Warm, dry with normal turgor. Normal color with no rashes, no lesions, and no evidence of cellulitis. MS/ Extremity: Pulses equal, no cyanosis. Neurovascular intact. Full, normal range of motion. 07:56 Constitutional: The patient appears Confused, mumbling speech 08:52 ECG was reviewed by the Attending Physician. rt Vital Signs: 07:34 BP 125 / 66; Pulse 100; Resp 22; Temp 101.5(O); Pulse Ox 94% on R/A; Weight 90.72 kg; db Height 6 ft. 0 in. ; 08:00 BP 127 / 76; Pulse 100; Resp 22; Pulse Ox 94% on R/A; db 09:05 BP 120 / 64; Pulse 88; Resp 24; Pulse Ox 94% on R/A; db 09:30 BP 127 / 64; Pulse 87; Resp 22; Pulse Ox 96% ; db 10:00 BP 122 / 74; Pulse 78; Resp 20; Temp 98.9(O); Pulse Ox 95% ; db 10:30 Temp 98.9; db 07:34 Body Mass Index 27.12 (90.72 kg, 182.88 cm) db MDM: 07:41 Patient medically screened. rt 17:57 Differential diagnosis: Sepsis, UTI, pneumonia. Data reviewed: vital signs, nurses rt notes, lab test result(s), EKG, radiologic studies. Consideration of Admission/Observation Patient was admitted/placed on observation. Management of patient was discussed with the following: Primary Care Provider: Agrees to admit. I considered the following discharge prescriptions or medication management in the emergency department Medications were administered in the Emergency Department. See MAR. Independent interpretation of the following test(s) in the Emergency Department X-Ray: My interpretation is No pneumonia seen on interpretation of x-ray images. Test considered but Not performed: CT: AMS due to sepsis, no focal neurodeficits, CT scan not indicated. Care significantly affected by the following chronic conditions: Atrial fibrillation. Counseling: I had a detailed discussion with the patient and/or guardian regarding the historical points, exam findings, and any diagnostic results supporting the discharge/admit diagnosis, lab results, radiology results, the need for further work-up and treatment in the hospital. Response to treatment: the patient's symptoms have mildly improved after treatment. 10/14 07:42 Order name: Blood Culture Adult (2) rt 10/14 07:42 Order name: CBC with Diff; Complete Time: 09:17 rt 10/14 07:42 Order name: CMP; Complete Time: 09:17 rt 10/14 07:42 Order name: Lactate w/ 2H reflex if indic.; Complete Time: 08:34 rt 10/14 07:42 Order name: Protime (+inr); Complete Time: 09:17 rt 10/14 07:42 Order name: Ptt, Activated; Complete Time: 09:17 rt 10/14 07:42 Order name: Urinalysis w/ reflexes; Complete Time: 09:17 rt 10/14 08:19 Order name: CBC Smear Scan; Complete Time: 09:17 EDMS 10/14 09:18 Order name: Urine Culture EDMS 10/14 07:42 Order name: Chest Single View XRAY; Complete Time: 08:34 rt 10/14 07:42 Order name: Accucheck; Complete Time: 08:48 rt 10/14 07:42 Order name: Cardiac monitoring; Complete Time: 08:48 rt 10/14 07:42 Order name: EKG - Nurse/Tech; Complete Time: 08:48 rt 10/14 07:42 Order name: IV Saline Lock - Large Bore; Complete Time: 08:48 rt 10/14 07:42 Order name: Labs collected and sent; Complete Time: 08:48 rt 10/14 07:42 Order name: O2 Per Protocol; Complete Time: 08:48 rt 10/14 07:42 Order name: O2 Sat Monitoring; Complete Time: 08:48 rt 10/14 07:42 Order name: Vital Signs; Complete Time: 08:48 rt EC:52 Rate is 96 beats/min. Rhythm is regular, Normal Sinus Rhythm with Unifocal PVCs. QRS rt [place] is Normal. WA interval is normal. QRS interval is normal. QT interval is normal. No Q waves. Administered Medications: 08:11 Drug: Acetaminophen PO 1000 mg PO once Route: PO; db 11:18 Follow up: Response: No adverse reaction db 08:12 Drug: NS 0.9% IV 1000 ml IV at 1 bolus Per protocol; 1000 mL bolus Route: IV; Rate: 1 db bolus; Site: right wrist; 10:00 Follow up: Response: No adverse reaction; IV Status: Completed infusion; IV Intake: db 1000ml 08:30 Drug: Cefepime IVPB 2 grams IVPB at 200 ml/hr once over 30 mins; (mix in NS 100 mL) db Route: IVPB; Rate: 200 ml/hr; Infused Over: 30 mins; Site: right wrist; 09:15 Follow up: Response: No adverse reaction; IV Status: Completed infusion; IV Intake: db 100ml Disposition Summary: 06/23/24 10:00 Hospitalization Ordered Notes: Hospitalization Status: Inpatient Admission rt Provider: Alber Walker rt Location: Telemetry/MedSur (Inpatient) rt Condition: Fair rt Problem: new rt Symptoms: have improved rt Bed/Room Type: Standard rt Room Assignment: 207(10/15/23 10:27) sp Diagnosis - UTI/ Urinary tract infection, site not specified rt - Sepsis, unspecified organism rt Forms: - Medication Reconciliation Form rt - SBAR form rt - Leadership Thank You Letter rt Critical care time excluding procedures: 17:57 Critical care time: Bedside Care: 30 minutes, Consultation: 5 minutes. Total time: 35 rt minutes Signatures: Dispatcher [employer] EDMS Kerry Castillo Danielle, RN RN Alberto Hatch MD MD rt Corrections: (The following items were deleted from the chart) 07:43 07:42 BLOOD CULTURE*+BA.LAB.BRZ ordered. EDMS EDMS 07:43 07:42 CBC+H.LAB.BRZ ordered. EDMS EDMS 07:43 07:43 COMPREHENSIVE METABOLIC PANEL+C.LAB.BRZ ordered. EDMS EDMS 07:43 07:43 LACTATE+C.LAB.BRZ ordered. EDMS EDMS 07:43 07:43 PROTIME (+INR)+COAG.LAB.BRZ ordered. EDMS EDMS 07:43 07:43 PTT, ACTIVATED+COAG.LAB.BRZ ordered. EDMS EDMS 07:43 07:43 Urinalysis+U.LAB.BRZ ordered. EDMS EDMS 07:43 07:43 Chest Single View+RAD.RAD.BRZ ordered. EDMS EDMS 07:46 07:46 Allergies: No Known Allergies; db db 10:14 10:00 rt sp 10:17 10:14 431 sp sp 10:27 10:17 sp sp
[2023-10-15 12:27] VITALS: O2SAT 95
[2023-10-15] MEDS: NA CHLORIDE 0.9% 1,000 ML IV SCH ×2 (12:52→17:32)
[2023-10-15 12:54] VITALS: BMI 33.9
[2023-10-15] MEDS ORDERED: IPRATROPIUM BROM 0.5MG/2.5ML NEB PRN (17:14)
[2023-10-15] MEDS ORDERED: ALBUTEROL 2.5 MG/3 ML NEB SOL NEB PRN (17:14)
--- NOTE | 2023-10-15 17:32 | P.HP ---
Certification for Inpatient Patient admitted to: Inpatient With expected LOS: >2 Midnights Practitioner: I am a practitioner with admitting privileges, knowledge of patient current condition, hospital course, and medical plan of care. Services: Services provided to patient in accordance with Admission requirements found in Title 42 Section 412.3 of the Code of Federal Regulations Patient History Date of Service: 10/15/23 Reason for admission: WEAKNESS FOR A WEEK, FEVER FOR A DAY History of Present Illness: NITISH HAS ALZ DISEASE. HE IS BED BOUND FOR 6 MTHS. HOME HEALTH IS WORKING WITH HIM BUT I DON'T SEE NEED OF PT. HE HAS ABOVE SS FOR A DAY. HE IS ALWAYS CONFUSED FOR A WHILE. IS EXHAUSTED OF TAKING CARE OF HIM. HOME HEALTH IS ONLY DOING BATHS EVERY 4 DAYS. Allergies No Known Allergies Allergy (Verified 04/19/23 11:11) Home medications list reviewed: Yes Home Medications: Atorvastatin Calcium [Lipitor*] 40 mg PO DAILY 04/19/23 Levothyroxine Sodium 50 mg PO 0630 04/19/23 PARoxetine HCL [Paxil] 30 mg PO BEDTIME 04/19/23 Cranberry Fruit Extract 200 mg PO BID cap 05/01/23 Glucerna Shake [Glucerna*] 237 ml PO BID can 05/01/23 Aspirin 81 mg PO DAILY #30 tab.chew 05/02/23 Cholecalciferol (Vitamin D3) [Vitamin D3] 2,000 units PO DAILY 10/15/23 Esomeprazole Magnesium [Nexium] 20 mg PO DAILY 10/15/23 Furosemide [Lasix] 40 mg PO DAILY 10/15/23 Sacubitril/Valsartan [Entresto 24 mg-26 mg Tablet] 24 - 26 mg PO BID 10/15/23 - Past Medical/Surgical History Has patient received pneumonia vaccine in the past: Yes Diabetic: Yes -: htn -: dm -: back surgery - Social History Smoking Status: Never smoker Alcohol use: No CD- Drugs: No Caffeine use: No Place of Residence: Home Review of Systems 10-point ROS is otherwise unremarkable General: Weakness, Malaise, As per HPI Physical Examination - Vital Signs Temperature: 97.5 F Blood Pressure: 131/56 Pulse: 75 Respirations: 20 Pulse Ox (%): 98 - Physical Exam General: Oriented x1, Mild distress, Obese HEENT: Atraumatic, PERRLA, Mucous membr. moist/pink, EOMI, Sclerae nonicteric Neck: Supple, 2+ carotid pulse no bruit, No LAD, Without JVD or thyroid abnormality Respiratory: Clear to auscultation bilaterally, Normal air movement Cardiovascular: Regular rate/rhythm, Normal S1 S2 Gastrointestinal: Normal bowel sounds, No tenderness Musculoskeletal: No tenderness Integumentary: No rashes Neurological: Normal gait, Normal speech, Normal strength at 5/5 x4 extr, Normal tone, Normal affect Lymphatics: No axilla or inguinal lymphadenopathy - Studies Laboratory Data (last 24 hrs) 10/15/23 10/15/23 10/15/23 08:00 08:00 07:42 WBC 22.60 H Hgb 12.1 L Hct 35.5 L Plt Count 223 PT 13.9 H INR 1.27 APTT 29.2 Sodium 135 L Potassium 3.4 L BUN 27 H Creatinine 1.30 Glucose 202 H Total Bilirubin 1.1 H AST < 10 L ALT 16 Alkaline Phosphatase 85 Assessment and Plan - Problems (Diagnosis) (1) UTI (urinary tract infection) Current Visit: Yes Status: Acute Plan: IV ABX WBC IS HIGH DAILY LAB. CULTURE PENDING. MAY TAKE ABOUT 3 DAYS HERE TO GET CULTURE BACK. (2) Sepsis Current Visit: Yes Status: Acute Plan: ABOVE IV FL. (3) Alzheimer disease Current Visit: Yes Status: Chronic Plan: NEEDS MORE ASSISTANCE. CONSULT SW. - Advance Directives Does patient have a Living Will: No Does patient have a Durable POA for Healthcare: No
[2023-10-15] MEDS: CEFEPIME 1 GM in NA CHLORIDE 0.9% 100 ML IV SCH (20:57)
[2023-10-16] MEDS ORDERED: carisoprodoL 350 MG TAB PO PRN (07:58)
[2023-10-16] MEDS ORDERED: LACTULOSE 20 GM/30 ML UCUP PO PRN (07:58)
[2023-10-16] MEDS ORDERED: BISACODYL 10 MG RECTAL SUPP PR PRN (07:58)
[2023-10-16] MEDS ORDERED: BENZONATATE 100 MG CAP PO PRN (07:58)
[2023-10-16] MEDS ORDERED: HYDROCODONE/APAP 10/325 TAB PO SCH (08:00)
[2023-10-16] MEDS: OXcarbazepine 150 MG TAB PO SCH (08:48)
[2023-10-16] MEDS: GABAPENTIN 400 MG CAP PO SCH (08:48)
[2023-10-16] MEDS: METOPROLOL XL 25 MG TAB PO SCH (08:49)
[2023-10-16] MEDS: MAGNESIUM OXIDE 400 MG TAB PO SCH (08:49)
[2023-10-16] MEDS: DIVALPROEX ER 250 MG TAB PO SCH (08:49)
[2023-10-16] MEDS: METFORMIN ER 500 MG TAB PO SCH (08:49)
[2023-10-16] MEDS: HOME MED 1 EA UNK (Fluticasone/Umeclidin/Vilanter [Trelegy Ellipta 200-62.5-25] Blst.W.Dev IH SCH (09:00)
[2023-10-16 10:51] LABS: Absolute Eosinophils 0.4 K/uL (0-0.5); Absolute Lymphocytes (CBC) 2.9 K/uL (0.7-4.9); Absolute Monocytes 0.8 K/uL (0.1-1.3); Absolute Neutrophil 8.2 K/uL (1.8-8.0); Basophils % 0.3 % (0-1.3); Eosinophils % 3.5 % (0-4.4); Hematocrit 33.7 % (39.6-49.0); Hemoglobin 11.4 g/dL (13.6-17.9); Lymphocytes % 23.2 % (15.3-44.8); MCH 29.8 pg (27.0-35.0); MCHC 33.8 g/dL (32.0-36.0); MCV 88.2 fL (80-100); MPV 7.3 fL (7.6-11.3); Monocytes % 6.4 % (3.3-12.3); Neutrophils % 66.6 % (41.7-73.7); Platelets 213 thou/uL (152-406); RBC Red Blood Cell Count 3.82 M/uL (4.33-5.43); Red Cell Distribution Width 14.4 % (12.1-15.2)
[2023-10-16 11:09] LABS: Anion Gap 4.6 mEq/L (5.0-15.0); Potassium 3.6 mEq/L (3.5-5.1)
[2023-10-16] MEDS: POTASSIUM CL SA 10 MEQ TAB PO ONE (13:02)
--- NOTE | 2023-10-16 13:06 | EKG ---
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 MEASUREMENT RESULTS: Intervals: Rate: 96 LA: 188 QRSD: 126 QT: 364 QTc: 459 [place]: P: 40 LA: 188 QRS: 34 T: 162 INTERPRETIVE STATEMENTS: Sinus rhythm with frequent premature ventricular complexes Nonspecific intraventricular block Cannot rule out Anteroseptal infarct, age undetermined T wave abnormality, consider lateral ischemia Abnormal ECG Compared to ECG 04/21/2023 14:40:36 Ventricular premature complex(es) now present T-wave abnormality now present Possible ischemia now present Atrial premature complex(es) no longer present Myocardial infarct finding still present Electronically Signed On 10-16-23 13:03:23 CDT by Darien Cash
[2023-10-16] MEDS: NA CHLORIDE 0.9% 1,000 ML IV SCH (18:03)
--- NOTE | 2023-10-16 18:04 | P.PN ---
Subjective Date of Service: 10/16/23 Chief Complaint: WEAKNESS FOR A WEEK, FEVER FOR A DAY Subjective: Improving HE IS LOT BETTER HE IS BEDBOUND FOR 6 MTHS. WHO IS SMALL IS TRYING TO TAKE CARE OF HIM. I ADVISED NH. Review of Systems 10-point ROS is otherwise unremarkable General: Weakness Physical Examination - Vital Signs Temperature: 98.1 F Blood Pressure: 122/61 Pulse: 77 Respirations: 16 Pulse Ox (%): 94 - Physical Exam General: Alert, Oriented x2, Mild distress HEENT: Atraumatic, PERRLA, EOMI Neck: Supple, JVD not distended Respiratory: Clear to auscultation bilaterally, Normal air movement Cardiovascular: Regular rate/rhythm, Normal S1 S2 Gastrointestinal: Normal bowel sounds, No tenderness Musculoskeletal: No tenderness Integumentary: No rashes Neurological: Normal speech, Normal tone, Normal affect Lymphatics: No axilla or inguinal lymphadenopathy - Studies Medications List Reviewed: Yes Assessment And Plan - Current Problems (Diagnosis) (1) UTI (urinary tract infection) Current Visit: Yes Status: Acute Plan: IV ABX WBC IS HIGH DAILY LAB. CULTURE PENDING. MAY TAKE ABOUT 3 DAYS HERE TO GET CULTURE BACK. WBC DOWN TO 12K CUTLURE PENDING. (2) Sepsis Current Visit: Yes Status: Acute Plan: ABOVE IV FL. (3) Alzheimer disease Current Visit: Yes Status: Chronic Plan: NEEDS MORE ASSISTANCE. CONSULT KENYA.
[2023-10-16] MEDS: ATORVASTATIN 40 MG TAB PO SCH (22:20)
[2023-10-17 12:08] VITALS: BP 104/49; TEMP 97.7
--- NOTE | 2023-10-17 21:50 | P.DS ---
Admission Date: 10/15/23 Discharge Date: 10/17/23 Disposition: ROUTINE DISCHARGE Discharge Condition: FAIR Reason for Admission: WEAKNESS FOR A WEEK, FEVER FOR A DAY - Problems (1) UTI (urinary tract infection) Status: Acute (2) Sepsis Status: Acute (3) Alzheimer disease Status: Chronic Brief History of Present Illness: NITISH HAS ALZ DISEASE. HE IS BED BOUND FOR 6 MTHS. HOME HEALTH IS WORKING WITH HIM BUT I DON'T SEE NEED OF PT. HE HAS ABOVE SS FOR A DAY. HE IS ALWAYS CONFUSED FOR A WHILE. IS EXHAUSTED OF TAKING CARE OF HIM. HOME HEALTH IS ONLY DOING BATHS EVERY 4 DAYS. HE IS LOT BETTER. CONTINUE CIPRO ORALLY I TALKED TO AND EXPLAINED I AM NOT SURE WHY HE HAS CODEINE, HYDROCODON ON THE LIST OF HIS MEDS. HIS MED LIST IS TOTALLY DIFFERENT THAN HIS MEDICINE LIST AT HOME. I TOLD NURSE NOT TO GIVE THE LIST FROM OFFICE I WILL HAVE THEM COME TO OFFICE WITH LIST OF MEDS. Vital Signs/Physical Exam: Temp Pulse Resp BP Pulse Ox 97.7 F 60 17 104/49 L 99 10/17/23 11:55 10/17/23 11:55 10/17/23 11:55 10/17/23 11:55 10/17/23 11:55 Laboratory Data at Discharge: WBC 12.40 thou/uL (4.3-10.9) H 10/16/23 10:43 Hgb 11.4 g/dL (13.6-17.9) L 10/16/23 10:43 Hct 33.7 % (39.6-49.0) L 10/16/23 10:43 Plt Count 213 thou/uL (152-406) 10/16/23 10:43 PT 13.9 SECONDS (9.4-12.5) H 10/15/23 08:00 INR 1.27 10/15/23 08:00 APTT 29.2 SECONDS (24.3-36.9) 10/15/23 08:00 Sodium 137 mEq/L (136-145) 10/16/23 10:43 Potassium 3.6 mEq/L (3.5-5.1) 10/16/23 10:43 BUN 29 mg/dL (7-18) H 10/16/23 10:43 Creatinine 1.17 mg/dL (0.70-1.30) 10/16/23 10:43 Glucose 200 mg/dL (74-106) H 10/16/23 10:43 Total Bilirubin 1.1 mg/dL (0.2-1.0) H 10/15/23 08:00 AST < 10 U/L (15-37) L 10/15/23 08:00 ALT 16 U/L (16-61) 10/15/23 08:00 Alkaline Phosphatase 85 U/L (45-117) 10/15/23 08:00 Home Medications: Albuterol Neb [Proventil 0.083% Neb Soln] 1 amp NEB Q4HP PRN 10/16/23 Atorvastatin Calcium [Lipitor] 40 mg PO BEDTIME 10/16/23 Divalproex ER [Depakote *ER] 250 mg PO BID 10/16/23 Famotidine [Pepcid AC] 10 mg PO Q8HP PRN 10/16/23 Fluticasone/Umeclidin/Vilanter [Trelegy Ellipta 200-62.5-25] 1 puff IH DAILY 10/16/23 Lactulose [Cephulac*] 20 g PO Q12HP PRN 10/16/23 Followup: Alber Walker MD [Primary Care Provider] - 1 Week
== END 2023-10-17 14:33 | disposition home or self-care (01) | DRG 872 ==
LOC: ER 07:35 → ERHOLD 10:02 → 2ND 10:52
PROVIDERS: ADMIT Internal Medicine; ATTEND Internal Medicine
DX: A41.9 Sepsis, unspecified organism (principal); N39.0 Urinary tract infection, site not specified; I48.91 Unspecified atrial fibrillation; E11.9 Type 2 diabetes mellitus without complications; G30.9 Alzheimer's disease, unspecified; F02.80 Dementia in other diseases classified elsewhere, unspecified severity, without behavioral disturbance, psychotic disturbance, mood disturbance, and anxiety; Z88.1 Allergy status to other antibiotic agents; Z74.01 Bed confinement status; Z79.82 Long term (current) use of aspirin; Z79.890 Hormone replacement therapy; Z79.899 Other long term (current) drug therapy
CPT/HCPCS: 36415; 51702; 71045; 80048; 80053; 81001; 82947; 83605; 85025; 85610; 85730; 87040; 87077; 87086; 87088; 87186; 93005; 96361; 96365; 99285; J0692; J7030